=== PATIENT | male | born 1945 | race Caucasian/White ===

== ENCOUNTER 2018-02-06 11:12 | Inpatient (IN) ==
[2018-02-06] MEDS ORDERED: COLCHICINE 0.6 MG TABLET PO ONE (12:30)
[2018-02-06] MEDS: INSULIN REGULAR, HUMAN 100 UNITS/ML VIAL SC SCH ×3 (12:34→20:20)
[2018-02-06 12:57] LABS: Hematocrit 34.4 % (42.0-52.0); Hemoglobin 10.9 gm/dL (13.5-18.0); Mean Cell Volume 83.5 fl (78-100); Mean Corpuscular Hemoglobin 26.5 pg (27-31); Mean Corpuscular Hgb Conc 31.7 g/dl (32-36); Mean Platelet Volume 10.6 fl (8-11.3); Platelet Count 185 K/mm3 (150-450); Red Blood Count 4.12 M/mm3 (4.7-6.0); Red Cell Distribution Width 13.5 % (11.5-14.0); White Blood Count 23.5 K/mm3 (4.0-10.5)
[2018-02-06 13:13] LABS: Anion Gap 7.8 mmol/L (6.8-13.8); BUN/Creatinine Ratio 29.9 (9.0-21.6); Bilirubin, Total 0.4 mg/dL (0.0-1.1); Ca. Corrected For Albumin 10.4 mg/dL (8.4-10.2); Calcium * 9.1 mg/dL (7.9-10.9); Carbon Dioxide 28.4 mmol/L (24-32.6); Potassium 4.2 mmol/L (3.4-4.6); Total Protein 6.5 gm/dL (6.2-8.2)
[2018-02-06 13:21] LABS: Total Cells Counted 100
[2018-02-06 14:08] LABS: Immature Granulocyte 5 (0-1); Lymphocyte 1 % (20-51); Monocyte 5 % (0-9); Neutrophil 89 % (42-75); Neutrophil # 20.9 K/mm3 (1.3-6.0)
[2018-02-06] MEDS: CEFEPIME HCL 1 GM in DEXTROSE 5 % IN WATER 100 ML IV SCH ×2 (15:06)
[2018-02-06] MEDS ORDERED: MORPHINE SULFATE 2 MG/ML DISP.SYRIN IV PRN (15:28)
--- NOTE | 2018-02-06 16:04 | HP ---
Chief Complaint - Chief Complaint Date of Service: 02/06/18 Time of Service: 11:00 Chief Complaint: Severe right foot pain uncontrolled with oral pain meds, dehdryation, malaise History of Present Illness: Pt. 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 The pain has been excruciating and feels like he's walking on razor blades. He has pain meds at home but it hasn't helped. He was at [facility] for f/u chemo, but they just told him not chemo with his foot like that and sent him home. He is here because he is feeling weak and the pain gets to a 10/ 10 if he puts wt. on it and sometimes 7-8/10 just sitting. he denies F/C, PMH or FH of gout, trauma or injury to his foot. He hasn't been eating or drinking much due to the pain and not being able to get up and get water and food. he has help from a friend, but theyre not there all the time to help. Due to his pain and his looking sick, felt it was best to admit to obs and get some tests done, treating his pain and dehydration. Medical History (Last Reviewed 02/06/18 @ 12:08 by Cori Wolfe RN) Hyperlipidemia (Chronic) Mild intermittent asthma in adult without complication (Chronic) Onset Date: ~ 10/25/17 Insomnia (Chronic) Onset Date: ~03/27/13 Hypertension (Chronic) Onset Date: ~03/27/13 Diabetes mellitus (Chronic) Chronic depression (Chronic) Onset Date: ~03/27/13 Abdominal pain (Chronic) Onset Date: ~03/27/13 Liver cancer Onset Date: Unknown Surgical History: Surgical History (Last Reviewed 02/06/18 @ 12:08 by Cori Wolfe RN) H/O umbilical hernia repair Onset Date: ~07/20/11 History of testicular surgery Onset Date: ~1978 Hx of local excision of skin lesion Onset Date: ~03/07/07 S/P excision of lipoma Onset Date: ~08/01/12 Family History: Family History (Last Reviewed 02/06/18 @ 12:09 by Cori Wolfe RN) Father Myocardial infarction Skin cancer Heart disease Hypertension Mother CHF (congestive heart failure) Hypertension Heart disease Sister Hypertension Social History: Patient Lives/Resources Home Utilized Preferred Language Cameroonian Do you have any temple or Yes: prov cultural preference? Smoking Status Never smoker Have you smoked in the past 12 No months Review Of Systems (GEN) - Review of Systems Generalized/Overall Review: Present: Weakness, Malaise, Fatigue, Weight loss. Absent: Chills, Fever EENTM: Present: No Symptoms Reported Respiratory: Present: No Symptoms Reported Cardiac: Present: No Symptoms Reported Abdominal: Present: No Symptoms Reported. Absent: Nausea, Vomiting, Abdominal Pain, Constipation, Diarrhea Genitourinary: Present: No Symptoms Reported Musculoskeletal: Present: Joint Pain Neurological: Present: Weakness Skin: Present: Rash, Change in Color Endocrine: Present: No Symptoms Reported Allergies/Adverse Reactions: Allergies Allergy/AdvReac Type Severity Reaction Status Date / Time No Known Drug Allergies Allergy Verified 02/06/18 12:09 Home Medications: HOME MEDICATIONS amLODIPine BESYLATE [Norvasc (Amlodipine)] 5 mg PO DAILY 08/19/12 [Last Taken Unknown] ascorbic acid (vitamin C) 500 mg tablet 500 mg PO DAILY 01/24/18 [Last Taken Unknown] benazepril 40 mg tablet 20 mg PO DAILY tab 01/24/18 [Last Taken Unknown] glyburide 5 mg tablet 10 mg PO BID tab 01/24/18 [Last Taken Unknown] isosorbide mononitrate ER 30 mg tablet,extended release 24 hr 30 mg PO DAILY 09/08 [Last Taken Unknown] lactobacillus rhamnosus R0011 20 billion cell capsule See Label Instructions PO DAILY 01/24/18 [Last Taken Unknown] melatonin 5 mg tablet 5 mg PO HS PRN 01/24/18 [Last Taken Unknown] metoprolol tartrate 50 mg tablet 25 mg PO BID tab 01/24/18 [Last Taken Unknown] mirtazapine 30 mg tablet 30 mg PO HS 30 Days #30 tab 01/24/18 [Last Taken Unknown] montelukast 10 mg tablet 10 mg PO QPM 01/24/18 [Last Taken Unknown] pioglitazone 30 mg tablet 30 mg PO DAILY 90 Days #90 tab 01/24/18 [Last Taken Unknown] ranitidine 75 mg tablet 75 mg PO DAILY PRN tab 01/24/18 [Last Taken Unknown] sitagliptin 100 mg tablet 100 mg PO DAILY 90 Days #90 tab 01/24/18 [Last Taken Unknown] zolpidem 10 mg tablet 10 mg PO HS tab 01/24/18 [Last Taken Unknown] Exam - Exam Vital Signs: Vital Signs - Last Taken Temp 36.8 C 02/06/18 15:07 Pulse 115 H 02/06/18 15:07 Resp 20 02/06/18 15:07 BP 126/70 02/06/18 15:07 Pulse Ox 95 02/06/18 15:07 Constitutional: Present: Alert, Oriented x3, Cooperative, Moderate distress, Thin and frail ENT Exam: Present: nasal drainage Eye Exam: bilateral eye: normal inspection, PERRL, EOMI Neck: Present: supple Respiratory: Present: lungs clear, normal breath sounds, no respiratory distress , no accessory muscle use Cardiovascular/Chest: Present: regular rate, rhythm, no murmur Abdomen: Present: Normal bowel sounds, soft, nontender, nondistended Extremity: Present: pedal edema - and erythema of right foot. no calor, but definite dolor to palpation Neurologic: Present: hat mender II-XII nml as tested, other - was in WC Appearance: Present: appropriate appearance, appropriate insight, neat, no memory impairment Eye contact: Present: cooperative, good eye contact, normal speech Thoughts: Present: normal thought pattern, no apparent hallucination Diagnostic Studies: Abnormal Lab Results 02/06/18 02/06/18 Range/Units 12:52 12:52 WBC 23.5 H (4.0-10.5) K/mm3 RBC 4.12 L (4.7-6.0) M/mm3 Hgb 10.9 L (13.5-18.0) gm/dL Hct 34.4 L (42.0-52.0) % MCH 26.5 L (27-31) pg MCHC 31.7 L (32-36) g/dl Neutrophils % (Manual) 89 H (42-75) % Lymphocytes % (Manual) 1 L (20-51) % Immature Granulocytes 5 H (0-1) Neutrophils # (Manual) 20.9 H (1.3-6.0) K/mm3 Lymphocytes # (Manual) 0.2 L (1.5-3.5) k/mm3 Monocytes # (Manual) 1.2 H (0.0-1.0) k/mm3 Sodium 125 L (132-142) mmol/L Plasma Sodium 128 L (130-142) mmol/L Chloride 93 L (97-106) mmol/L BUN 47 H D (6-23) mg/dL Creatinine 1.57 H (0.4-1.4) mg/dL Est GFR (Non-Af Amer) 47 L (60-130) mL/min BUN/Creatinine Ratio 29.9 H (9.0-21.6) Random Glucose 284 H (70-110) mg/dL Calcium Adj for Albumin 10.4 H (8.4-10.2) mg/dL AST 71 H (0-48) U/L Albumin 2.0 L (3.4-5.0) gm/dl Laboratory Results WBC 23.5 K/mm3 (4.0-10.5) H 02/06/18 12:52 RBC 4.12 M/mm3 (4.7-6.0) L 02/06/18 12:52 Hgb 10.9 gm/dL (13.5-18.0) L 02/06/18 12:52 Hct 34.4 % (42.0-52.0) L 02/06/18 12:52 MCV 83.5 fl (78-100) 02/06/18 12:52 MCH 26.5 pg (27-31) L 02/06/18 12:52 MCHC 31.7 g/dl (32-36) L 02/06/18 12:52 RDW 13.5 % (11.5-14.0) 02/06/18 12:52 Plt Count 185 K/mm3 (150-450) 02/06/18 12:52 MPV 10.6 fl (8-11.3) 02/06/18 12:52 Neutrophils % (Manual) 89 % (42-75) H 02/06/18 12:52 Lymphocytes % (Manual) 1 % (20-51) L 02/06/18 12:52 Monocytes % (Manual) 5 % (0-9) 02/06/18 12:52 Immature Granulocytes 5 (0-1) H 02/06/18 12:52 Neutrophils # (Manual) 20.9 K/mm3 (1.3-6.0) H 02/06/18 12:52 Lymphocytes # (Manual) 0.2 k/mm3 (1.5-3.5) L 02/06/18 12:52 Monocytes # (Manual) 1.2 k/mm3 (0.0-1.0) H 02/06/18 12:52 Sodium 125 mmol/L (132-142) L 02/06/18 12:52 Plasma Sodium 128 mmol/L (130-142) L 02/06/18 12:52 Potassium 4.2 mmol/L (3.4-4.6) 02/06/18 12:52 Chloride 93 mmol/L (97-106) L 02/06/18 12:52 Carbon Dioxide 28.4 mmol/L (24-32.6) 02/06/18 12:52 Anion Gap 7.8 mmol/L (6.8-13.8) 02/06/18 12:52 BUN 47 mg/dL (6-23) H D 02/06/18 12:52 Creatinine 1.57 mg/dL (0.4-1.4) H 02/06/18 12:52 Est GFR (Non-Af Amer) 47 mL/min (60-130) L 02/06/18 12:52 BUN/Creatinine Ratio 29.9 (9.0-21.6) H 02/06/18 12:52 Random Glucose 284 mg/dL (70-110) H 02/06/18 12:52 Uric Acid 6.0 mg/dL (2.6-7.2) 02/06/18 12:52 Calcium 9.1 mg/dL (7.9-10.9) 02/06/18 12:52 Calcium Adj for Albumin 10.4 mg/dL (8.4-10.2) H 02/06/18 12:52 Total Bilirubin 0.4 mg/dL (0.0-1.1) 02/06/18 12:52 AST 71 U/L (0-48) H 02/06/18 12:52 ALT 41 U/L (19-67) 02/06/18 12:52 Alkaline Phosphatase 131 U/L (50-170) 02/06/18 12:52 Total Protein 6.5 gm/dL (6.2-8.2) 02/06/18 12:52 Albumin 2.0 gm/dl (3.4-5.0) L 02/06/18 12:52 Assessment/Plan - Assessment/Plan (1) Bile duct cancer Assessment: sx onset after 1st chemo - gout prescipitation vs. infection vs. ? Problem: Acute (2) Hyponatremia Assessment: 125 on labs, most likely due to poor nutrition and PO intake most likely. will do IVF of NS, recheck in am. Problem: Acute (3) Dehydration Assessment: Will do IVF. Problem: Acute (4) Anorexia Assessment: will push PO intake, supplements with ensure, consider D51/2NS Problem: Acute (5) Leukocytosis Assessment: concern for possible foot infection - will start cefepime and follow CBC Problem: Acute (6) Foot pain, right Assessment: gout vs infection vs ? will control pain with IV pain meds, check uric acid, do colcrys Problem: Acute (7) Diabetes mellitus Assessment: will hold meds and do SSI while in hospital. do consistent carb diet. Problem: Chronic Qualifiers: Diabetes mellitus type: type 2 Diabetes mellitus long-term insulin use: without watermelon inspector use Diabetes mellitus complication status: without complication Qualified Code(s): E11.9 - Type 2 diabetes mellitus without complications (8) Discharge planning issues Problem: Acute
[2018-02-06 16:10] LABS: Urine Bilirubin Negative (NEGATIVE); Urine Blood 250 /ul (NEGATIVE); Urine Ketone Negative (NEGATIVE); Urine Nitrite Negative (NEGATIVE); Urine Protein 15 mg/dL (NEGATIVE); Urine Specific Gravity 1.025 SP.GR. (1.005-1.030); Urine Urobilinogen Normal (NORMAL); Urine pH 5.5 pH (5.0-7.0)
[2018-02-06 16:50] LABS: Urine Appearance Clear (CLEAR); Urine Bacteria TRACE; Urine Color Yellow; Urine Triple Phosphate Crystal Few - 1+ /hpf; Urine WBC 0-5 /hpf (0-5)
[2018-02-06 16:51] LABS: Urine Mucus TRACE
[2018-02-06] MEDS: MONTELUKAST SODIUM 10 MG TABLET PO SCH (17:17)
[2018-02-06] MEDS: MORPHINE SULFATE 2 MG/ML DISP.SYRIN IV PRN ×3 (17:19→20:02)
[2018-02-06] MEDS: FAMOTIDINE 20 MG TABLET PO PRN (17:52)
[2018-02-06] MEDS: MIRTAZAPINE 15 MG TABLET PO SCH (20:17)
[2018-02-06] MEDS: ZOLPIDEM TARTRATE 10 MG TABLET PO SCH (20:17)
[2018-02-06] MEDS: METOPROLOL TARTRATE 25 MG TABLET PO SCH (20:18)
[2018-02-06] MEDS ORDERED: NALOXONE HCL 1 MG/1 ML SYRG IV PRN (21:54)
[2018-02-06] MEDS ORDERED: diphenhydrAMINE HCL 50 MG/ML VIAL IV PRN (21:54)
[2018-02-06] MEDS: NORMAL SALINE 1,000 ML IV PRN (21:57)
[2018-02-07] MEDS: FAMOTIDINE 20 MG TABLET PO PRN (03:23)
[2018-02-07] MEDS: CEFEPIME HCL 1 GM in DEXTROSE 5 % IN WATER 100 ML IV SCH ×4 (03:26→16:12)
[2018-02-07] MEDS: MORPHINE SULFATE 2 MG/ML DISP.SYRIN IV PRN (03:41)
[2018-02-07 05:35] LABS: Albumin * 1.7 gm/dl (3.4-5.0); Anion Gap 12.3 mmol/L (6.8-13.8); BUN/Creatinine Ratio 31.5 (9.0-21.6); Bilirubin, Total 0.4 mg/dL (0.0-1.1); Calcium * 8.5 mg/dL (7.9-10.9); Carbon Dioxide 28.8 mmol/L (24-32.6); Potassium 4.1 mmol/L (3.4-4.6)
[2018-02-07 05:39] LABS: Hematocrit 31.9 % (42.0-52.0); Hemoglobin 10.1 gm/dL (13.5-18.0); Mean Cell Volume 83.9 fl (78-100); Mean Corpuscular Hemoglobin 26.6 pg (27-31); Mean Corpuscular Hgb Conc 31.7 g/dl (32-36); Platelet Count 233 K/mm3 (150-450); Red Cell Distribution Width 13.7 % (11.5-14.0)
[2018-02-07 05:44] LABS: Total Cells Counted 100
[2018-02-07 06:07] LABS: Band 1 % (0-2.0); Immature Granulocyte 1 (0-1); Lymphocyte 3 % (20-51); Monocyte 7 % (0-9); Neutrophil 88 % (42-75); Neutrophil # 20.2 K/mm3 (1.3-6.0); Platelet Estimate Normal (NORMAL)
[2018-02-07 06:09] LABS: Basophilic Stippling Trace; Hypochromia Trace; Polychromasia Trace
[2018-02-07] MEDS ORDERED: KETOROLAC TROMETHAMINE 15 MG/ML VIAL IV ONE (06:40)
--- NOTE | 2018-02-07 07:04 | PN ---
Subjective - Date and Time Seen Date: 02/07/18 Time: 06:50 Subjective Narrative: Pain in right foot still intractible requiring frequent morphine dosing. CONTAINER SHOP WELDER that was ordered last pm was not available. Pt. also complaint of abdominal discomfort and distension with "egg taste" in mouth. Last BM was Saturday. No other complaints this am. Appetite is still poor. Objective - Review of Systems Generalized/Overall Review: Reports: Weakness, Weight loss. Denies: Chills, Fever EENTM: Reports: No Symptoms Reported Respiratory: Reports: No Symptoms Reported Cardiac: Reports: No Symptoms Reported Abdominal: Reports: Nausea, Abdominal Pain, Constipation. Denies: Vomiting, Diarrhea Genitourinary Symptoms: Reports: No Symptoms Reported Musculoskeletal Complaints: Reports: Joint Pain - foot pain - right foot. Neurological: Reports: No Symptoms Reported Skin: Reports: No Symptoms Reported Endocrine: Reports: No Symptoms Reported - Vitals Vitals: Last Vital Signs Temp 36.8 C 02/07/18 06:48 Pulse 109 H 02/07/18 06:48 Resp 18 02/07/18 06:48 BP 154/81 H 02/07/18 06:48 Pulse Ox 96 02/07/18 06:48 - Abnormal Lab Findings Abnormal Lab Findings: Abnormal Lab Results 02/06/18 02/06/18 02/06/18 Range/Units 12:52 12:52 15:39 WBC 23.5 H (4.0-10.5) K/mm3 RBC 4.12 L (4.7-6.0) M/mm3 Hgb 10.9 L (13.5-18.0) gm/dL Hct 34.4 L (42.0-52.0) % MCH 26.5 L (27-31) pg MCHC 31.7 L (32-36) g/dl Neutrophils % (Manual) 89 H (42-75) % Lymphocytes % (Manual) 1 L (20-51) % Immature Granulocytes 5 H (0-1) Neutrophils # (Manual) 20.9 H (1.3-6.0) K/mm3 Lymphocytes # (Manual) 0.2 L (1.5-3.5) k/mm3 Monocytes # (Manual) 1.2 H (0.0-1.0) k/mm3 ESR (0-10) mm/hr Sodium 125 L (132-142) mmol/L Plasma Sodium 128 L (130-142) mmol/L Chloride 93 L (97-106) mmol/L BUN 47 H D (6-23) mg/dL Creatinine 1.57 H (0.4-1.4) mg/dL Est GFR (Non-Af Amer) 47 L (60-130) mL/min BUN/Creatinine Ratio 29.9 H (9.0-21.6) Random Glucose 284 H (70-110) mg/dL Calcium Adj for Albumin 10.4 H (8.4-10.2) mg/dL AST 71 H (0-48) U/L Total Protein (6.2-8.2) gm/dL Albumin 2.0 L (3.4-5.0) gm/dl Urine Protein 15 H (NEGATIVE) mg/dL Urine Glucose (UA) 500 H (NEGATIVE) mg/dL Urine Blood 250 H (NEGATIVE) /ul Prot Sulfosalicylic Acd 2+ H (0) mg/dL Urine RBC 5-10 H (0-5) /hpf Triple Phos Crystals Few - 1+ H (NONE) /hpf 02/06/18 02/07/18 02/07/18 Range/Units 16:50 05:15 05:15 WBC 23.0 H (4.0-10.5) K/mm3 RBC 3.80 L (4.7-6.0) M/mm3 Hgb 10.1 L (13.5-18.0) gm/dL Hct 31.9 L (42.0-52.0) % MCH 26.6 L (27-31) pg MCHC 31.7 L (32-36) g/dl Neutrophils % (Manual) 88 H (42-75) % Lymphocytes % (Manual) 3 L (20-51) % Immature Granulocytes (0-1) Neutrophils # (Manual) 20.2 H (1.3-6.0) K/mm3 Lymphocytes # (Manual) 0.7 L (1.5-3.5) k/mm3 Monocytes # (Manual) 1.6 H (0.0-1.0) k/mm3 ESR 58 H (0-10) mm/hr Sodium (132-142) mmol/L Plasma Sodium (130-142) mmol/L Chloride (97-106) mmol/L BUN 40 H (6-23) mg/dL Creatinine (0.4-1.4) mg/dL Est GFR (Non-Af Amer) 59 L D (60-130) mL/min BUN/Creatinine Ratio 31.5 H (9.0-21.6) Random Glucose 141 H D (70-110) mg/dL Calcium Adj for Albumin (8.4-10.2) mg/dL AST 50 H (0-48) U/L Total Protein 6.0 L (6.2-8.2) gm/dL Albumin 1.7 L (3.4-5.0) gm/dl Urine Protein (NEGATIVE) mg/dL Urine Glucose (UA) (NEGATIVE) mg/dL Urine Blood (NEGATIVE) /ul Prot Sulfosalicylic Acd (0) mg/dL Urine RBC (0-5) /hpf Triple Phos Crystals (NONE) /hpf - Exam Constitutional: Present: Alert, Oriented x3, Cooperative, Mild distress, Moderate distress, Thin and frail ENT Exam: Present: hearing grossly normal Neck: Present: supple Respiratory: Present: lungs clear, normal breath sounds, no respiratory distress Cardiovascular/Chest: Present: regular rate, rhythm, no murmur Abdomen: Present: nontender, distended, hypoactive. Absent: guarding, rigidity Extremity: Present: no calf tenderness, other - right foot with < erythema, still very tender to squeeze. decreased swelling. DP is palpable. Skin Exam: Present: cool/dry Neurologic: Present: automotive painter helper II-XII nml as tested, oriented x 3, depressed affect Appearance: Present: appropriate appearance, appropriate insight, neat, no memory impairment Eye contact: Present: cooperative, good eye contact, normal speech Thoughts: Present: normal thought pattern, no apparent hallucination Assessment/Plan - Problems/Diagnosis (1) Bile duct cancer Problem: Acute (2) Hyponatremia Problem: Resolved (3) Dehydration Problem: Resolved (4) Anorexia Problem: Acute (5) Leukocytosis Problem: Acute Qualifiers: Leukocytosis type: leukemoid reaction Qualified Code(s): D72.823 - Leukemoid reaction Narrative: still persisting this am. could be not enough time for abx to work. ESR and left shift supports probable infectious cause of this so will continue cefipime. UA was negative for infection, could be prostate or colon infection or even his foot since this is improved this am from an appearance standpoint. (6) Foot pain, right Problem: Acute Narrative: Uric acid was 6, could be pseudogout reaction. Foot looks better this am, so I think the colcrys may be helping which supports this suspicion. Will add toradol x 1 this am. (7) Diabetes mellitus Problem: Chronic Qualifiers: Diabetes mellitus type: type 2 Diabetes mellitus termite control servicer insulin use: without termite control servicer use Diabetes mellitus complication status: without complication Qualified Code(s): E11.9 - Type 2 diabetes mellitus without complications Narrative: sugars better this am. continue consistent carb diet and SSI. hold other meds for now. (8) Acute renal failure Problem: Resolved Qualifiers: Acute renal failure type: unspecified Qualified Code(s): N17.9 - Acute kidney failure, unspecified (9) Malnourished Problem: Acute Qualifiers: Malnutrition type: protein-calorie malnutrition Protein-calorie malnutrition severity: severe Qualified Code(s): E43 - Unspecified severe protein-calorie malnutrition Narrative: due to poor PO intake. consider TPN, but will push supplements of ensure TID to 6x/day (clear and regular mix) consider dietary consult. (10) Constipation Problem: Acute Qualifiers: Constipation type: drug induced constipation Qualified Code(s): K59.03 - Drug induced constipation Narrative: most likely from his pain meds. will do suppository, once he has BM will give magcitrate and then start on miralax daily. (11) Intractable pain Problem: Acute Narrative: add CONTAINER SHOP WELDER today. will have to transition off this to oral meds, but will start that tomorrow. (12) Discharge planning issues Problem: Acute Narrative: can look at discharge once WBC is normalizing on abx - cx pending, pain is controlled and he's on oral meds, nutrition is improved, has had a bm and he is ambulating independently again. anticipate this will take at least 2 more midnights to accomplish.
[2018-02-07] MEDS: BISACODYL 10 MG SUPP.RECT RC SCH ×4 (07:18→18:54)
[2018-02-07] MEDS: INSULIN REGULAR, HUMAN 100 UNITS/ML VIAL SC SCH ×4 (07:24→20:17)
[2018-02-07] MEDS ORDERED: MORPHINE SULFATE 50 MG CARTRIDGE IV PRN (07:36)
[2018-02-07] MEDS: ONDANSETRON HCL/PF 2 MG/ML VIAL IV PRN (07:55)
[2018-02-07] MEDS: amLODIPine BESYLATE 5 MG TABLET PO SCH (08:11)
[2018-02-07] MEDS: POLYETHYLENE GLYCOL 3350 119 GM BTL PO SCH (08:11)
[2018-02-07] MEDS: METOPROLOL TARTRATE 25 MG TABLET PO SCH ×2 (08:11→20:12)
[2018-02-07] MEDS: MORPHINE SULFATE 50 MG CARTRIDGE IV PRN ×2 (08:42→12:26)
[2018-02-07] MEDS ORDERED: ENALAPRIL MALEATE 20 MG TABLET PO SCH (09:00)
[2018-02-07] MEDS: NORMAL SALINE 1,000 ML IV PRN ×2 (14:37→23:32)
[2018-02-07] MEDS ORDERED: MAGNESIUM CITRATE 300 ML BTL PO ONE (16:20)
[2018-02-07] MEDS: MONTELUKAST SODIUM 10 MG TABLET PO SCH (18:00)
[2018-02-07] MEDS: ZOLPIDEM TARTRATE 10 MG TABLET PO SCH (20:11)
[2018-02-07] MEDS: MIRTAZAPINE 15 MG TABLET PO SCH (20:12)
[2018-02-08] MEDS: BISACODYL 10 MG SUPP.RECT RC SCH ×6 (00:53→19:43)
[2018-02-08] MEDS: CEFEPIME HCL 1 GM in DEXTROSE 5 % IN WATER 100 ML IV SCH ×4 (02:43→16:01)
[2018-02-08 05:44] LABS: Hematocrit 32.9 % (42.0-52.0); Mean Corpuscular Hemoglobin 26.5 pg (27-31); Mean Corpuscular Hgb Conc 30.4 g/dl (32-36); Mean Platelet Volume 11.4 fl (8-11.3); Neutrophil # 15.1 K/mm3 (1.3-6.0); Neutrophil % 86.2 % (42-75.0); Platelet Count 246 K/mm3 (150-450); Red Blood Count 3.78 M/mm3 (4.7-6.0); White Blood Count 17.5 K/mm3 (4.0-10.5)
[2018-02-08] MEDS: INSULIN REGULAR, HUMAN 100 UNITS/ML VIAL SC SCH ×4 (07:05→20:46)
--- NOTE | 2018-02-08 07:54 | PN ---
Subjective - Date and Time Seen Date: 02/08/18 Time: 07:36 Subjective Narrative: Pain is better in foot, but still hurts a lot when ambulating. Appetite is better after having 8 BM's yesterday. Objective - Review of Systems Generalized/Overall Review: Reports: Weakness. Denies: Chills, Fever, Malaise EENTM: Reports: No Symptoms Reported Respiratory: Denies: Cough, Shortness of Breath Cardiac: Reports: No Symptoms Reported Abdominal: Reports: Nausea. Denies: Abdominal Pain, Constipation, Diarrhea Genitourinary Symptoms: Reports: No Symptoms Reported Musculoskeletal Complaints: Reports: Joint Pain - foot still painful but is better. Neurological: Reports: No Symptoms Reported Skin: Reports: No Symptoms Reported - Vitals Vitals: Last Vital Signs Temp 37 C 02/08/18 05:00 Pulse 98 02/08/18 05:00 Resp 20 02/08/18 05:00 BP 118/71 02/08/18 05:00 Pulse Ox 96 02/08/18 05:00 - Abnormal Lab Findings Abnormal Lab Findings: Abnormal Lab Results 02/08/18 Range/Units 05:35 WBC 17.5 H D (4.0-10.5) K/mm3 RBC 3.78 L (4.7-6.0) M/mm3 Hgb 10.0 L (13.5-18.0) gm/dL Hct 32.9 L (42.0-52.0) % MCH 26.5 L (27-31) pg MCHC 30.4 L (32-36) g/dl MPV 11.4 H (8-11.3) fl Immature Gran % (Auto) 2.80 H (0.001-0.429) % Immature Gran # (Auto) 0.49 H (0.000-0.0310) K/mm3 Neutrophils % 86.2 H (42-75.0) % Lymphocytes % 4.2 L (20-51) % Neutrophils # 15.1 H (1.3-6.0) K/mm3 Lymphocytes # 0.74 L (1.5-3.5) k/mm3 Monocytes # 1.1 H (0.0-1.0) k/mm3 - Exam Constitutional: Present: Alert, Oriented x3, Cooperative, Mild distress ENT Exam: Present: hearing grossly normal Neck: Present: supple Respiratory: Present: lungs clear, normal breath sounds, no respiratory distress , no accessory muscle use Cardiovascular/Chest: Present: regular rate, rhythm Abdomen: Present: Normal bowel sounds, soft, nontender, distended /Rectal: Present: Exam deferred Extremity: Present: normal range of motion, no calf tenderness, other - toes violaceous, but improved in color. they are cool but not TTP. foot is more violaceous and less red, ammonia distiller to squeeze. Skin Exam: Present: normal color Neurologic: Present: normal mood/affect, oriented x 3 Appearance: Present: appropriate appearance, appropriate insight, neat, no memory impairment Eye contact: Present: cooperative, good eye contact, normal speech Thoughts: Present: normal thought pattern, no apparent hallucination Assessment/Plan - Problems/Diagnosis (1) Bile duct cancer Problem: Acute Narrative: stable (2) Hyponatremia Problem: Resolved (3) Dehydration Problem: Resolved Narrative: will still continue IVF due to poor PO intake. (4) Anorexia Problem: Acute (5) Leukocytosis Problem: Acute Qualifiers: Leukocytosis type: leukemoid reaction Qualified Code(s): D72.823 - Leukemoid reaction Narrative: improved, suspect infection though no specific source. could be infection of liver from Bx done a few weeks ago given elevated AST, but even this isn't greatly elevated. Foot could be infected, but doesn't fit all the signs and sx of infection. Doubt endocarditis, but is possible, but no murmur heard on exam. Will continue cefepime for now given broad coverage. Consider change to augmentin at time of discharge. (6) Foot pain, right Problem: Acute Narrative: still believe gout or pseudogout attack. could possibly be infection. Continue SOAPSTONER for now. (7) Diabetes mellitus Problem: Chronic Qualifiers: Diabetes mellitus type: type 2 Diabetes mellitus terminal operator insulin use: without penitentiary use Diabetes mellitus complication status: without complication Qualified Code(s): E11.9 - Type 2 diabetes mellitus without complications Narrative: sugars running a little high, in the 200's, now that he's eating a little better , will increase to moderate SSI. (8) Acute renal failure Problem: Resolved Qualifiers: Acute renal failure type: unspecified Qualified Code(s): N17.9 - Acute kidney failure, unspecified (9) Malnourished Problem: Acute Qualifiers: Malnutrition type: protein-calorie malnutrition Protein-calorie malnutrition severity: severe Qualified Code(s): E43 - Unspecified severe protein-calorie malnutrition Narrative: continue to push ensure as it has more calories and protein I believe than glucerna. Can deal with the effect on sugars with SSI. Push PO intake. (10) Constipation Problem: Acute Qualifiers: Constipation type: drug induced constipation Qualified Code(s): K59.03 - Drug induced constipation Narrative: improved after mag citrate and suppository. Will do miralax daily, possibly repeat mag citrate tomorrow if felt needed. Do believe this may have been causing his anorexia or at least contributing to it. It's possible it could also have been causing some of his leukocytosis. (11) Intractable pain Problem: Acute Narrative: better, but still on SOAPSTONER. Will start to wean him off this hopefully tomorrow, but did use almost 40mg of morphine yesterday so don't want to d/c just yet. (12) Weakness Problem: Acute Narrative: will order PT for strengthening, though there will have to be some considerations for his foot - maybe exercises in bed. (13) Discharge planning issues Problem: Acute Narrative: hopefully will be able to d/c to [facility] on Saturday. Should be able to do so if he continues to improve like he is.
[2018-02-08] MEDS: NORMAL SALINE 1,000 ML IV PRN ×2 (08:11→16:52)
[2018-02-08] MEDS: POLYETHYLENE GLYCOL 3350 119 GM BTL PO SCH (10:01)
[2018-02-08] MEDS: METOPROLOL TARTRATE 25 MG TABLET PO SCH ×2 (10:02→20:40)
[2018-02-08] MEDS: amLODIPine BESYLATE 5 MG TABLET PO SCH (10:02)
[2018-02-08] MEDS: ENALAPRIL MALEATE 5 MG TABLET PO SCH (10:02)
[2018-02-08] MEDS: MONTELUKAST SODIUM 10 MG TABLET PO SCH (16:58)
[2018-02-08] MEDS: FAMOTIDINE 20 MG TABLET PO PRN (18:37)
[2018-02-08] MEDS: ZOLPIDEM TARTRATE 10 MG TABLET PO SCH (20:34)
[2018-02-08] MEDS: MIRTAZAPINE 15 MG TABLET PO SCH (20:37)
[2018-02-09] MEDS: NORMAL SALINE 1,000 ML IV PRN ×2 (01:16→10:36)
[2018-02-09] MEDS: BISACODYL 10 MG SUPP.RECT RC SCH ×6 (02:03→20:17)
[2018-02-09] MEDS: CEFEPIME HCL 1 GM in DEXTROSE 5 % IN WATER 100 ML IV SCH ×2 (03:48)
[2018-02-09] MEDS: INSULIN REGULAR, HUMAN 100 UNITS/ML VIAL SC SCH ×4 (07:25→20:22)
[2018-02-09] MEDS: amLODIPine BESYLATE 5 MG TABLET PO SCH (08:24)
[2018-02-09] MEDS: ENALAPRIL MALEATE 5 MG TABLET PO SCH (08:25)
[2018-02-09] MEDS: POLYETHYLENE GLYCOL 3350 119 GM BTL PO SCH (08:26)
[2018-02-09] MEDS: METOPROLOL TARTRATE 25 MG TABLET PO SCH ×2 (08:33→20:11)
[2018-02-09] MEDS: FAMOTIDINE 20 MG TABLET PO PRN (10:40)
[2018-02-09 13:44] LABS: Hematocrit 31.5 % (42.0-52.0); Hemoglobin 9.8 gm/dL (13.5-18.0); Mean Cell Volume 86.3 fl (78-100); Mean Corpuscular Hemoglobin 26.8 pg (27-31); Mean Corpuscular Hgb Conc 31.1 g/dl (32-36); Mean Platelet Volume 10.5 fl (8-11.3); Neutrophil % 88.5 % (42-75.0); Platelet Count 428 K/mm3 (150-450); Red Blood Count 3.65 M/mm3 (4.7-6.0); Red Cell Distribution Width 14.1 % (11.5-14.0); White Blood Count 20.4 K/mm3 (4.0-10.5)
[2018-02-09 13:50] LABS: Albumin * 1.6 gm/dl (3.4-5.0); Anion Gap 12.3 mmol/L (6.8-13.8); BUN/Creatinine Ratio 23.5 (9.0-21.6); Bilirubin, Total 0.2 mg/dL (0.0-1.1); Ca. Corrected For Albumin 8.7 mg/dL (8.4-10.2); Calcium * 7.1 mg/dL (7.9-10.9); Carbon Dioxide 24.5 mmol/L (24-32.6); Potassium 3.8 mmol/L (3.4-4.6); Total Protein 5.8 gm/dL (6.2-8.2)
[2018-02-09] MEDS ORDERED: FUROSEMIDE 10 MG/ML VIAL IV ONE (14:22)
[2018-02-09] MEDS: CLINDAMYCIN HCL 150 MG CAPSULE PO SCH (14:33)
[2018-02-09] MEDS: CALCIUM CARBONATE/VITAMIN D3 1 TAB TABLET PO SCH ×2 (14:33→20:27)
--- NOTE | 2018-02-09 14:37 | PN ---
Subjective - Date and Time Seen Date: 02/09/18 Time: 14:23 Subjective Narrative: Pt. complaint of abdominal distension and SOB. he denies a great deal of abdominal pain, F/c. foot pain is better. Objective - Review of Systems Generalized/Overall Review: Reports: Weakness. Denies: Chills, Fever EENTM: Reports: No Symptoms Reported Respiratory: Reports: Shortness of Breath. Denies: Cough, Wheezing Cardiac: Reports: Edema. Denies: Chest Pain, Palpitations Abdominal: Reports: Nausea, Abdominal Pain, Diarrhea. Denies: Vomiting, Constipation Genitourinary Symptoms: Denies: No Symptoms Reported Musculoskeletal Complaints: Denies: No Symptoms Reported Neurological: Denies: No Symptoms Reported Skin: Denies: No Symptoms Reported Endocrine: Denies: No Symptoms Reported - Vitals Vitals: Last Vital Signs Temp 36.2 C 02/09/18 10:00 Pulse 112 H 02/09/18 13:00 Resp 16 02/09/18 13:00 BP 121/70 02/09/18 13:00 Pulse Ox 95 02/09/18 13:00 - Abnormal Lab Findings Abnormal Lab Findings: Abnormal Lab Results 02/09/18 02/09/18 Range/Units 13:29 13:29 WBC 20.4 H (4.0-10.5) K/mm3 RBC 3.65 L (4.7-6.0) M/mm3 Hgb 9.8 L (13.5-18.0) gm/dL Hct 31.5 L (42.0-52.0) % MCH 26.8 L (27-31) pg MCHC 31.1 L (32-36) g/dl RDW 14.1 H (11.5-14.0) % Immature Gran % (Auto) 2.20 H (0.001-0.429) % Immature Gran # (Auto) 0.44 H (0.000-0.0310) K/mm3 Neutrophils % 88.5 H (42-75.0) % Lymphocytes % 2.9 L (20-51) % Neutrophils # 18.0 H (1.3-6.0) K/mm3 Lymphocytes # 0.58 L (1.5-3.5) k/mm3 Monocytes # 1.2 H (0.0-1.0) k/mm3 BUN 27 H (6-23) mg/dL BUN/Creatinine Ratio 23.5 H (9.0-21.6) Random Glucose 297 H D (70-110) mg/dL Calcium 7.1 L (7.9-10.9) mg/dL AST 54 H (0-48) U/L Total Protein 5.8 L (6.2-8.2) gm/dL Albumin 1.6 L (3.4-5.0) gm/dl - Exam Constitutional: Present: Alert, Oriented x3, Cooperative, Mild distress, Moderate distress, Elderly, Thin and frail ENT Exam: Present: hearing grossly normal Neck: Present: supple Respiratory: Present: lungs clear, normal breath sounds, no accessory muscle use , respiratory distress - mild Cardiovascular/Chest: Present: regular rate, rhythm, no murmur, tachycardia Abdomen: Present: Normal bowel sounds, no rebound tenderness, no hepatospenomegaly, firm, other - dullness to percusion when patient on side to [address] abdomen., distended. Absent: tender, guarding Extremity: Present: non-tender, no calf tenderness, other - violaceous discoloration of toes, distal plantar foot, mid foot on dorsum. No rubor or calor, min. dolor to palpation. 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 fluids stopped. (3) Dehydration Problem: Resolved (4) Anorexia Problem: Acute Narrative: worse again, most likely due to abdominal issues. (5) Leukocytosis Problem: Acute Qualifiers: Leukocytosis type: leukemoid reaction Qualified Code(s): D72.823 - Leukemoid reaction Narrative: worse, no pain, but with findings c/w ascites, there would be some concern for SBP. All findings don't fit, especially being that he's been on cefepime, but if fevers, worsening WBC, then would consider US guided paracentesis with cultures and more broader spectrum treatment for this. (6) Foot pain, right Problem: Acute Narrative: sugars still running high. will increase SSI to high dose. 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 puts him at higher risk for ascites. (10) Constipation Problem: Resolved Qualifiers: Constipation type: drug induced constipation Qualified Code(s): K59.03 - Drug induced constipation Narrative: continue miralax daily. (11) Intractable pain Problem: Acute Narrative: improved. 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 (12) Weakness Problem: Acute Narrative: will do PT. (13) Ascites Problem: Acute Narrative: probably due to poor nutrition, hypoalbuminemia. Will d/c IVF. do IV lasix. if sx persist - tachycardia being one possible sign, will order US guided paracentesis with cultures, also looking for it being malignant in nature. (14) Discharge planning issues Problem: Acute Narrative: hope to discharge tomorrow, but with WBC going up and ascites causing issues, it may now be Saturday before we can plan on discharging.
[2018-02-09] MEDS: MONTELUKAST SODIUM 10 MG TABLET PO SCH (17:00)
[2018-02-09] MEDS: oxyCODONE HCL 5 MG TABLET PO PRN (18:42)
[2018-02-09] MEDS: ZOLPIDEM TARTRATE 10 MG TABLET PO SCH (20:11)
[2018-02-09] MEDS: MIRTAZAPINE 15 MG TABLET PO SCH (20:12)
[2018-02-10] MEDS: BISACODYL 10 MG SUPP.RECT RC SCH ×7 (00:31→23:10)
[2018-02-10] MEDS: CLINDAMYCIN HCL 150 MG CAPSULE PO SCH ×2 (01:38→15:15)
[2018-02-10 05:45] LABS: Hematocrit 31.8 % (42.0-52.0); Hemoglobin 9.5 gm/dL (13.5-18.0); Mean Cell Volume 87.1 fl (78-100); Mean Corpuscular Hgb Conc 29.9 g/dl (32-36); Mean Platelet Volume 10.7 fl (8-11.3); Platelet Count 499 K/mm3 (150-450); Red Blood Count 3.65 M/mm3 (4.7-6.0); Red Cell Distribution Width 14.1 % (11.5-14.0); White Blood Count 20.7 K/mm3 (4.0-10.5)
[2018-02-10] MEDS: oxyCODONE HCL 5 MG TABLET PO PRN ×3 (05:56→20:50)
[2018-02-10 05:58] LABS: Albumin * 1.7 gm/dl (3.4-5.0); Anion Gap 9.2 mmol/L (6.8-13.8); BUN/Creatinine Ratio 20.5 (9.0-21.6); Bilirubin, Total 0.3 mg/dL (0.0-1.1); Ca. Corrected For Albumin 9.4 mg/dL (8.4-10.2); Calcium * 7.9 mg/dL (7.9-10.9); Carbon Dioxide 27.4 mmol/L (24-32.6); Magnesium 1.7 mg/dL (1.2-2.8); Phosphorus 1.7 mg/dL (2.2-4.2); Potassium 3.6 mmol/L (3.4-4.6)
--- NOTE | 2018-02-10 06:54 | PN ---
Subjective - Date and Time Seen Date: 02/10/18 Time: 06:52 Subjective Narrative: Feels better after lasix given - can breath better. Has issues with ensure causing gas and "egg taste" in mouth. Foot pain is worse today. No other complaints. Objective - Review of Systems Generalized/Overall Review: Reports: Weakness. Denies: Chills, Fever EENTM: Reports: No Symptoms Reported Respiratory: Reports: Shortness of Breath - improved. Denies: Cough, Orthopnea Cardiac: Reports: Edema. Denies: Chest Pain, Palpitations Abdominal: Reports: Nausea. Denies: Vomiting, Hematemesis, Abdominal Pain, Constipation, Diarrhea Genitourinary Symptoms: Reports: No Symptoms Reported Neurological: Reports: Weakness Skin: Reports: No Symptoms Reported Endocrine: Reports: No Symptoms Reported - Vitals Vitals: Last Vital Signs Temp 37.0 C 02/10/18 05:00 Pulse 98 02/10/18 05:00 Resp 18 02/10/18 05:00 BP 121/59 02/10/18 05:00 Pulse Ox 96 02/10/18 05:00 - Abnormal Lab Findings Abnormal Lab Findings: Abnormal Lab Results 02/09/18 02/09/18 02/10/18 Range/Units 13:29 13:29 05:10 WBC 20.4 H 20.7 H (4.0-10.5) K/mm3 RBC 3.65 L 3.65 L (4.7-6.0) M/mm3 Hgb 9.8 L 9.5 L (13.5-18.0) gm/dL Hct 31.5 L 31.8 L (42.0-52.0) % MCH 26.8 L 26.0 L (27-31) pg MCHC 31.1 L 29.9 L (32-36) g/dl RDW 14.1 H 14.1 H (11.5-14.0) % Plt Count 499 H (150-450) K/mm3 Immature Gran % (Auto) 2.20 H 1.50 H (0.001-0.429) % Immature Gran # (Auto) 0.44 H 0.32 H (0.000-0.0310) K/mm3 Neutrophils % 88.5 H 87.0 H (42-75.0) % Lymphocytes % 2.9 L 4.6 L (20-51) % Neutrophils # 18.0 H 18.0 H (1.3-6.0) K/mm3 Lymphocytes # 0.58 L 0.95 L (1.5-3.5) k/mm3 Monocytes # 1.2 H 1.3 H (0.0-1.0) k/mm3 BUN 27 H (6-23) mg/dL BUN/Creatinine Ratio 23.5 H (9.0-21.6) Random Glucose 297 H D (70-110) mg/dL Calcium 7.1 L (7.9-10.9) mg/dL Phosphorus (2.2-4.2) mg/dL AST 54 H (0-48) U/L Total Protein 5.8 L (6.2-8.2) gm/dL Albumin 1.6 L (3.4-5.0) gm/dl 02/10/18 Range/Units 05:10 WBC (4.0-10.5) K/mm3 RBC (4.7-6.0) M/mm3 Hgb (13.5-18.0) gm/dL Hct (42.0-52.0) % MCH (27-31) pg MCHC (32-36) g/dl RDW (11.5-14.0) % Plt Count (150-450) K/mm3 Immature Gran % (Auto) (0.001-0.429) % Immature Gran # (Auto) (0.000-0.0310) K/mm3 Neutrophils % (42-75.0) % Lymphocytes % (20-51) % Neutrophils # (1.3-6.0) K/mm3 Lymphocytes # (1.5-3.5) k/mm3 Monocytes # (0.0-1.0) k/mm3 BUN (6-23) mg/dL BUN/Creatinine Ratio (9.0-21.6) Random Glucose 133 H D (70-110) mg/dL Calcium (7.9-10.9) mg/dL Phosphorus 1.7 L (2.2-4.2) mg/dL AST (0-48) U/L Total Protein 6.0 L (6.2-8.2) gm/dL Albumin 1.7 L (3.4-5.0) gm/dl - Exam Constitutional: Present: Alert, Oriented x3, Cooperative, Well developed, No distress, Elderly, Thin and frail ENT Exam: Present: hearing grossly normal Neck: Present: supple Respiratory: Present: lungs clear, normal breath sounds, no respiratory distress Cardiovascular/Chest: Present: regular rate, rhythm, no murmur Abdomen: Present: Normal bowel sounds, soft, nontender, other - dullness to percussion michael 1/4 up on sides., distended Extremity: Present: pedal edema, slow capillary refill, other - foot is cool on right, toes purple as well as dorsum of foot. TTP on dorsum of foot in MT region. no rubor or calor. 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 (5) Leukocytosis Problem: Acute Qualifiers: Leukocytosis type: leukemoid reaction Qualified Code(s): D72.823 - Leukemoid reaction Narrative: still unsure the etiology. it is not improved with dlindamycin. no murmur heard or fever so doubt endocarditis, though could be possible given purple toes on right foot. Could still be infection in the foot, though not sure why it would improve then regress on cefepime. Could be SBP, though again no fever or chills and NTTP on his abdomen. Will get paracentesis with studies to r/o SBP. Add levaquin to clindamycin for broader coverage. Consider ECHO. (6) Foot pain, right Problem: Acute Narrative: infection or circulation issue or emboli from endocarditis (doubtful) or possible gout. 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 I did not increase his SSI as thought so will increase to moderate SSI and see how he does. (8) Acute renal failure Problem: Resolved Qualifiers: Acute renal failure type: unspecified Qualified Code(s): N17.9 - Acute kidney failure, unspecified (9) Malnourished Problem: Acute Qualifiers: Malnutrition type: protein-calorie malnutrition Protein-calorie malnutrition severity: severe Qualified Code(s): E43 - Unspecified severe protein-calorie malnutrition Narrative: continue to push nutrition. May need to change to regular diet so he can choose more of what he might like. (10) Constipation Problem: Resolved Qualifiers: Constipation type: drug induced constipation Qualified Code(s): K59.03 - Drug induced constipation Narrative: continue miralax. (11) Intractable pain Problem: Acute Narrative: improved. continue po oxycodone. (12) Weakness Problem: Acute Narrative: get PT started. question is whether [facility] would be better than the [facility] from a rehab standpoint. (13) Ascites Problem: Acute Qualifiers: Ascites type: other type Qualified Code(s): R18.8 - Other ascites Narrative: improved after lasix given. will do this prn. consider aldactone. (14) Discharge planning issues Problem: Acute Narrative: can't discharge until WBC improving. will be tomorrow at the earliest and possibly not until Sat.
[2018-02-10] MEDS: INSULIN REGULAR, HUMAN 100 UNITS/ML VIAL SC SCH ×4 (07:32→21:02)
[2018-02-10 08:55] LABS: INR 1.2 INR (0.90-1.10); Partial Thrombolplastin Time 26.7 Seconds (24-32)
[2018-02-10] MEDS: METOPROLOL TARTRATE 25 MG TABLET PO SCH ×2 (09:27→22:18)
[2018-02-10] MEDS: CALCIUM CARBONATE/VITAMIN D3 1 TAB TABLET PO SCH ×2 (09:27→20:46)
[2018-02-10] MEDS: POLYETHYLENE GLYCOL 3350 119 GM BTL PO SCH (09:27)
[2018-02-10] MEDS: ENALAPRIL MALEATE 5 MG TABLET PO SCH (09:28)
[2018-02-10] MEDS: amLODIPine BESYLATE 5 MG TABLET PO SCH (09:28)
[2018-02-10] MEDS: LEVOFLOXACIN 750 MG TABLET PO SCH (11:21)
[2018-02-10] MEDS ORDERED: NORMAL SALINE 500 ML IV ONE (15:00)
[2018-02-10 15:17] LABS: Peritoneal Fluid Uric Acid 4.6 mg/dL
[2018-02-10 15:55] LABS: Body Fluid WBC 466 /uL (0-1000)
[2018-02-10 16:21] LABS: Body Fluid Appearance CLEAR (CLEAR); Body Fluid Color YELLOW (COLORLESS)
[2018-02-10] MEDS: MONTELUKAST SODIUM 10 MG TABLET PO SCH (16:26)
[2018-02-10] MEDS: MIRTAZAPINE 15 MG TABLET PO SCH (20:45)
[2018-02-10] MEDS: FAMOTIDINE 20 MG TABLET PO PRN (20:45)
[2018-02-10] MEDS: ZOLPIDEM TARTRATE 10 MG TABLET PO SCH (20:50)
[2018-02-10] MEDS: ONDANSETRON HCL/PF 2 MG/ML VIAL IV PRN (22:13)
[2018-02-11] MEDS: CLINDAMYCIN HCL 150 MG CAPSULE PO SCH (02:02)
[2018-02-11] MEDS: BISACODYL 10 MG SUPP.RECT RC SCH ×3 (02:45→11:41)
[2018-02-11 05:43] LABS: Hematocrit 27.8 % (42.0-52.0); Hemoglobin 8.5 gm/dL (13.5-18.0); Mean Cell Volume 85.8 fl (78-100); Mean Corpuscular Hemoglobin 26.2 pg (27-31); Mean Corpuscular Hgb Conc 30.6 g/dl (32-36); Mean Platelet Volume 10.9 fl (8-11.3); Neutrophil # 13.8 K/mm3 (1.3-6.0); Neutrophil % 85.6 % (42-75.0); Platelet Count 467 K/mm3 (150-450); Red Blood Count 3.24 M/mm3 (4.7-6.0); Red Cell Distribution Width 14.2 % (11.5-14.0); White Blood Count 16.1 K/mm3 (4.0-10.5)
--- NOTE | 2018-02-11 06:15 | PATH ---
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 Most recent CT scan here at [facility] 12/20/2017 shows a dominant 12.7 cm right liver mass with evidence of nodules in the liver and omentum. He was unable to continue chemotherapy and is admitted for right foot pain which prevented further treatment with chemotherapy.. Patient underwent paracentesis under ultrasound guidance by the radiologist using a 19-gauge paracentesis needle. 5500 mL of fluid is obtained. Serum albumin gradient (1.7 gm/dl - 1.4 gm/dl) = .3 gm/dl is low suggesting a primary peritoneal rather than a liver related portal hypertension etiology for the ascites. WBC 466/ul with 12% neutrophils, gram stain negative. GROSS DESCRIPTION: The specimen is received fresh in the lab in 5 glass aspiration containers appropriately designated, "paracentesis." Specimen consists of 5500 mL of straw-colored fluid. A 100 mL aliquot is processed with equal volume of cytospin fixative for cytospin's and cell block preparation. DIAGNOSIS: PERITONEAL CAVITY, ASCITES FLUID, PARACENTESIS: -METASTATIC ADENOCARCINOMA, SEE COMMENT COMMENT: Cytospin and cell block show some single and small groups of large cells with high NC ratio and nucleus hugging the cytoplasmic border. 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 Cytologic features are consistent with a metastasis to the peritoneum from proposed liver cholangiocarcinoma primary site. Scant proteinaceous debris, many lymphocytes, few mesothelial cells, few histiocytes, rare PMNs and rare RBCs. Findings are communicated to Dr. Dumont by voice on 02/11/2018 and final report is faxed on 02/12/2018.
--- NOTE | 2018-02-11 07:08 | DS ---
(1) Bile duct cancer Diagnosis(s): no treatment done during stay. feel is causing issues with liver and hypoalbuminemia and therefore his ascites. will have him resume chemo at next appt. Problem: Acute (2) Hyponatremia Diagnosis(s): resolved within 24hrs of admit with IVF of NS running at 125ml/hr. no further issues during stay. Problem: Resolved (3) Dehydration Problem: Resolved (4) Anorexia Diagnosis(s): ongoing issue due to cancer, maybe some depression. did not tolerate ensure. might go to glucerna or instant breakfast or what he tolerates. Problem: Acute (5) Leukocytosis Diagnosis(s): improving on current abx. still unsure of source. will continue abx for the next week. Problem: Acute Qualifiers: Leukocytosis type: leukemoid reaction Qualified Code(s): D72.823 - Leukemoid reaction (6) Foot pain, right Diagnosis(s): improved - source of infection? still with very purple toes, but not tender to palpation. will follow outpt. remind pt. to have oncology look at foot to be sure not a severe reaction to chemo. Problem: Acute (7) Diabetes mellitus Diagnosis(s): sugars finally improving so believe infection is being treated. will resume oral meds. Problem: Chronic Qualifiers: Diabetes mellitus type: type 2 Diabetes mellitus snf insulin use: without snf use Diabetes mellitus complication status: without complication Qualified Code(s): E11.9 - Type 2 diabetes mellitus without complications (8) Acute renal failure Problem: Resolved Qualifiers: Acute renal failure type: unspecified Qualified Code(s): N17.9 - Acute kidney failure, unspecified (9) Malnourished Diagnosis(s): continue to push high protein and high calorie foods. whatever he likes he needs to eat. d/w him at length. Problem: Acute Qualifiers: Malnutrition type: protein-calorie malnutrition Protein-calorie malnutrition severity: severe Qualified Code(s): E43 - Unspecified severe protein-calorie malnutrition (10) Constipation Diagnosis(s): will continue miralax, encourage fiber in diet. stop amlodipine due to low bp and constipation issues. may need to do prn dulcolax. Problem: Resolved Qualifiers: Constipation type: drug induced constipation Qualified Code(s): K59.03 - Drug induced constipation (11) Intractable pain Diagnosis(s): improved, continue oxycodone prn. Problem: Acute (12) Weakness Diagnosis(s): continue outpt. PT. Problem: Acute (13) Ascites Diagnosis(s): improved after paracentesis, but some reacummulation this am. consider spironolactone, but BP's need to be higher. Problem: Acute Qualifiers: Ascites type: other type Qualified Code(s): R18.8 - Other ascites (14) Discharge planning issues Diagnosis(s): will discharge to [place] with for additional care needs and hopefully better nutrition. Problem: Acute Description of Stay: see above. Procedures Performed: see notes below List Procedures: paracentesis Results and Findings: Pending Mircobiology Results 02/06/18 15:15 Blood Blood Culture - Preliminary NO GROWTH AFTER 48 HOURS Lab Pending Results 02/06/18 12:52: WBC 23.5 H, RBC 4.12 L, Hgb 10.9 L, Hct 34.4 L, MCV 83.5, MCH 26.5 L, MCHC 31.7 L, RDW 13.5, Plt Count 185, MPV 10.6, Neutrophils % (Manual) 89 H, Lymphocytes % (Manual) 1 L, Monocytes % (Manual) 5, Immature Granulocytes 5 H, Neutrophils # (Manual) 20.9 H, Lymphocytes # (Manual) 0.2 L, Monocytes # ( Manual) 1.2 H 02/06/18 12:52: Sodium 125 L, Plasma Sodium 128 L, Potassium 4.2, Chloride 93 L , Carbon Dioxide 28.4, Anion Gap 7.8, BUN 47 H D, Creatinine 1.57 H, Est GFR ( Non-Af Amer) 47 L, BUN/Creatinine Ratio 29.9 H, Random Glucose 284 H, Uric Acid 6.0, Calcium 9.1, Calcium Adj for Albumin 10.4 H, Total Bilirubin 0.4, AST 71 H , ALT 41, Alkaline Phosphatase 131, Total Protein 6.5, Albumin 2.0 L 02/06/18 15:39: Urine Color Yellow, Urine Appearance Clear, Urine pH 5.5, Ur Specific [place] 1.025, Urine Protein 15 H, Urine Glucose (UA) 500 H, Urine Ketones Negative, Urine Blood 250 H, Urine Nitrate Negative, Urine Bilirubin Negative, Prot Sulfosalicylic Acd 2+ H, Urine Urobilinogen Normal, Ur Leukocyte Esterase Negative, Urine RBC 5-10 H, Urine WBC 0-5, Ur Epithelial Cells 0-5, Triple Phos Crystals Few - 1+ H, Urine Bacteria Trace, Urine Mucus Trace 02/06/18 16:50: ESR 58 H 02/06/18 16:50: Lactic Acid, Venous 1.2 02/07/18 05:15: WBC 23.0 H, RBC 3.80 L, Hgb 10.1 L, Hct 31.9 L, MCV 83.9, MCH 26.6 L, MCHC 31.7 L, RDW 13.7, Plt Count 233, MPV 11.0, Neutrophils % (Manual) 88 H, Band Neuts % (Manual) 1, Lymphocytes % (Manual) 3 L, Monocytes % (Manual) 7, Immature Granulocytes 1, Neutrophils # (Manual) 20.2 H, Lymphocytes # (Manual ) 0.7 L, Monocytes # (Manual) 1.6 H, Platelet Estimate Normal, Polychromasia Trace, Hypochromasia Trace, Basophilic Stippling Trace 02/07/18 05:15: Sodium 136, Plasma Sodium 137, Potassium 4.1, Chloride 99, Carbon Dioxide 28.8, Anion Gap 12.3, BUN 40 H, Creatinine 1.27, Est GFR (Non-Af Amer) 59 L D, BUN/Creatinine Ratio 31.5 H, Random Glucose 141 H D, Calcium 8.5, Calcium Adj for Albumin 10.0, Total Bilirubin 0.4, AST 50 H, ALT 31, Alkaline Phosphatase 124, Total Protein 6.0 L, Albumin 1.7 L 02/08/18 05:35: WBC 17.5 H D, RBC 3.78 L, Hgb 10.0 L, Hct 32.9 L, MCV 87.0, MCH 26.5 L, MCHC 30.4 L, RDW 14.0, Plt Count 246, MPV 11.4 H, Immature Gran % (Auto ) 2.80 H, Immature Gran # (Auto) 0.49 H, Neutrophils % 86.2 H, Lymphocytes % 4.2 L, Monocytes % 6.4, Eosinophils % 0.2, Basophils % 0.2, Nucleated RBC % 0.0 , Neutrophils # 15.1 H, Lymphocytes # 0.74 L, Monocytes # 1.1 H, Eosinophils # 0.0, Absolute Basophils 0.0 02/09/18 13:29: WBC 20.4 H, RBC 3.65 L, Hgb 9.8 L, Hct 31.5 L, MCV 86.3, MCH 26.8 L, MCHC 31.1 L, RDW 14.1 H, Plt Count 428, MPV 10.5, Immature Gran % (Auto ) 2.20 H, Immature Gran # (Auto) 0.44 H, Neutrophils % 88.5 H, Lymphocytes % 2.9 L, Monocytes % 6.1, Eosinophils % 0.2, Basophils % 0.1, Nucleated RBC % 0.0 , Neutrophils # 18.0 H, Lymphocytes # 0.58 L, Monocytes # 1.2 H, Eosinophils # 0.0, Absolute Basophils 0.0 02/09/18 13:29: Sodium 139, Plasma Sodium 142, Potassium 3.8, Chloride 106, Carbon Dioxide 24.5, Anion Gap 12.3, BUN 27 H, Creatinine 1.15, Est GFR (Non-Af Amer) 67, BUN/Creatinine Ratio 23.5 H, Random Glucose 297 H D, Calcium 7.1 L, Calcium Adj for Albumin 8.7, Total Bilirubin 0.2, AST 54 H, ALT 25, Alkaline Phosphatase 125, Total Protein 5.8 L, Albumin 1.6 L 02/10/18 05:10: WBC 20.7 H, RBC 3.65 L, Hgb 9.5 L, Hct 31.8 L, MCV 87.1, MCH 26.0 L, MCHC 29.9 L, RDW 14.1 H, Plt Count 499 H, MPV 10.7, Immature Gran % ( Auto) 1.50 H, Immature Gran # (Auto) 0.32 H, Neutrophils % 87.0 H, Lymphocytes % 4.6 L, Monocytes % 6.1, Eosinophils % 0.6, Basophils % 0.2, Nucleated RBC % 0.0, Neutrophils # 18.0 H, Lymphocytes # 0.95 L, Monocytes # 1.3 H, Eosinophils # 0.1, Absolute Basophils 0.0 02/10/18 05:10: Sodium 139, Plasma Sodium 140, Potassium 3.6, Chloride 106, Carbon Dioxide 27.4, Anion Gap 9.2, BUN 23, Creatinine 1.12, Est GFR (Non-Af Amer) 69, BUN/Creatinine Ratio 20.5, Random Glucose 133 H D, Calcium 7.9, Calcium Adj for Albumin 9.4, Phosphorus 1.7 L, Magnesium 1.7, Total Bilirubin 0.3, AST 45, ALT 24, Alkaline Phosphatase 128, Total Protein 6.0 L, Albumin 1.7 L 02/10/18 05:10: PT 12.0 H, INR (Anticoag Therapy) 1.20 H, PTT (Amparo) 26.7 02/10/18 14:00: Peritoneal Tot Protein 3.3, Peritoneal Albumin 1.4, Peritoneal LDH 238, Peritoneal Glucose 235, Peritoneal Amylase 7, Peritoneal Cholesterol 81 , Peritoneal Triglycerid 33, Peritoneal Uric Acid 4.6 02/10/18 14:00: Fluid Color Yellow, Fluid Appearance Clear, Fluid WBC 466, Fluid RBC Greater than 1000.0 H, Fluid Neutrophils 12, Fluid Lymphocytes 75, Fluid Monocytes 5, Fluid Other Cells 8 02/11/18 04:55: ESR 54 H 02/11/18 04:55: WBC 16.1 H D, RBC 3.24 L, Hgb 8.5 L, Hct 27.8 L, MCV 85.8, MCH 26.2 L, MCHC 30.6 L, RDW 14.2 H, Plt Count 467 H, MPV 10.9, Immature Gran % ( Auto) 2.50 H, Immature Gran # (Auto) 0.40 H, Neutrophils % 85.6 H, Lymphocytes % 4.6 L, Monocytes % 6.6, Eosinophils % 0.6, Basophils % 0.1, Nucleated RBC % 0.0, Neutrophils # 13.8 H, Lymphocytes # 0.74 L, Monocytes # 1.1 H, Eosinophils # 0.1, Absolute Basophils 0.0 02/11/18 04:55: C-Reactive Prot, Quant 12.5 H Discharge Location: [facility] Disposition: [facility] Home Health Agency: [facility] Home Health Condition: [facility] Face to Face Encounter completed per CMS Guidelines: Yes Discharge Activity: Activity as tolerated Discharge Diet: Consistent carbs Referrals: Damian Dumont MD [Primary Care Provider] - One Week Additional Patient Instructions (free text): At discharge to go to [facility] to stay, please call and fax discharge information to them. [facility] new at discharge, please call and fax discharge orders to them. Prescriptions (Any new or edited meds): Clindamycin HCl [Cleocin] 600 mg PO Q12H #14 cap Levofloxacin [Levaquin] 750 mg PO DAILY@1100 #7 tab oxyCODONE HCL [Oxycodone] 5 mg PO Q4H PRN #90 tablet PRN Reason: Pain Polyethylene Glycol 3350 [Miralax] 17 gm PO DAILY #4 btl Complete Home Medications List: Complete Home Medication List: ascorbic acid (vitamin C) 500 mg tablet 500 mg PO DAILY 01/24/18 benazepril 40 mg tablet 20 mg PO DAILY tab 01/24/18 glyburide 5 mg tablet 10 mg PO BID tab 01/24/18 isosorbide mononitrate ER 30 mg tablet,extended release 24 hr 30 mg PO DAILY 09/08 lactobacillus rhamnosus R0011 20 billion cell capsule See Label Instructions PO DAILY 01/24/18 melatonin 5 mg tablet 5 mg PO HS PRN 01/24/18 metoprolol tartrate 50 mg tablet 25 mg PO BID tab 01/24/18 mirtazapine 30 mg tablet 30 mg PO HS 30 Days #30 tab 01/24/18 montelukast 10 mg tablet 10 mg PO QPM 01/24/18 pioglitazone 30 mg tablet 30 mg PO DAILY 90 Days #90 tab 01/24/18 ranitidine 75 mg tablet 75 mg PO DAILY PRN tab 01/24/18 sitagliptin 100 mg tablet 100 mg PO DAILY 90 Days #90 tab 01/24/18 zolpidem 10 mg tablet 10 mg PO HS tab 01/24/18 Clindamycin HCl [Cleocin] 600 mg PO Q12H #14 cap 02/11/18 Levofloxacin [Levaquin] 750 mg PO DAILY@1100 #7 tab 02/11/18 Polyethylene Glycol 3350 [Miralax] 17 gm PO DAILY #4 btl 02/11/18 oxyCODONE HCL [Oxycodone] 5 mg PO Q4H PRN #90 tablet 02/11/18
[2018-02-11] MEDS: INSULIN REGULAR, HUMAN 100 UNITS/ML VIAL SC SCH ×2 (07:09→11:45)
[2018-02-11] MEDS: CALCIUM CARBONATE/VITAMIN D3 1 TAB TABLET PO SCH (08:02)
[2018-02-11] MEDS: ENALAPRIL MALEATE 5 MG TABLET PO SCH (08:02)
[2018-02-11] MEDS: METOPROLOL TARTRATE 25 MG TABLET PO SCH (08:02)
[2018-02-11] MEDS: POLYETHYLENE GLYCOL 3350 119 GM BTL PO SCH (08:03)
[2018-02-11] MEDS: LEVOFLOXACIN 750 MG TABLET PO SCH (11:21)
[2018-02-11] MEDS: oxyCODONE HCL 5 MG TABLET PO PRN (11:22)
[2018-02-11 13:50] VITALS: BP 97/60
== END 2018-02-11 13:45 | disposition home health service (06) | DRG 640 ==
LOC: MS 11:12
PROVIDERS: ADMIT Family Medicine; ATTEND Family Medicine
DX: C78.7 Secondary malignant neoplasm of liver and intrahepatic bile duct; C24.0 Malignant neoplasm of extrahepatic bile duct; E11.9 Type 2 diabetes mellitus without complications; N17.9 Acute kidney failure, unspecified; D72.823 Leukemoid reaction; M79.671 Pain in right foot; J45.20 Mild intermittent asthma, uncomplicated; R18.8 Other ascites; K59.03 Drug induced constipation; R53.1 Weakness; E43 Unspecified severe protein-calorie malnutrition; E87.1 Hypo-osmolality and hyponatremia; I10 Essential (primary) hypertension; E86.0 Dehydration; E88.09 Other disorders of plasma-protein metabolism, not elsewhere classified; E78.5 Hyperlipidemia, unspecified
CPT/HCPCS: 36415; 49083; 73630; 80053; 81001; 82042; 82150; 82945; 82947; 83605; 83615; 83735; 84100; 84155; 84157; 84550; 84560; 85007; 85025; 85610; 85652; 85730; 86140; 87040; 87070; 87205; 88104; 88108; 88305; 89051; 97116; 97161; J2405

== ENCOUNTER 2018-02-14 06:39 | Inpatient (IN) ==
[2018-02-14] MEDS ORDERED: DEXTROSE 50%-WATER 50 ML SYRG ONE ×2 (06:43→06:50)
[2018-02-14] MEDS ORDERED: GLUCAGON,HUMAN RECOMBINANT 1 MG VIAL ONE (06:46)
[2018-02-14] MEDS ORDERED: WATER FOR INJECTION,STERILE 20 ML VIAL ONE (06:49)
[2018-02-14] MEDS ORDERED: GLUCAGON,HUMAN RECOMBINANT 1 MG VIAL IM ONE (06:50)
[2018-02-14] MEDS ORDERED: DEXTROSE 50%-WATER 50 ML SYRG IV ONE (06:54)
[2018-02-14] MEDS: DEXTROSE 5%-LACTATED RINGERS 1,000 ML IV PRN ×4 (06:55→21:35)
--- NOTE | 2018-02-14 07:24 | ERNOTE ---
Neuro HPI ER Record Date of Service: 02/14/18 Presenting Symptoms: other - decreased responsiveness Time Seen by Provider: 02/14/18 07:17 Source: patient Exam Limitations: clinical condition Allergies/Adverse Reactions: Allergies Allergy/AdvReac Type Severity Reaction Status Date / Time No Known Drug Allergies Allergy Verified 02/14/18 07:48 Home Medications: HOME MEDICATIONS ascorbic acid (vitamin C) 500 mg tablet 500 mg PO DAILY 01/24/18 [Last Taken Unknown] benazepril 40 mg tablet 20 mg PO DAILY tab 01/24/18 [Last Taken Unknown] glyburide 5 mg tablet 10 mg PO BID tab 01/24/18 [Last Taken Unknown] isosorbide mononitrate ER 30 mg tablet,extended release 24 hr 30 mg PO DAILY 09/08 [Last Taken Unknown] lactobacillus rhamnosus R0011 20 billion cell capsule See Label Instructions PO DAILY 01/24/18 [Last Taken Unknown] melatonin 5 mg tablet 5 mg PO HS PRN 01/24/18 [Last Taken Unknown] metoprolol tartrate 50 mg tablet 25 mg PO BID tab 01/24/18 [Last Taken Unknown] mirtazapine 30 mg tablet 30 mg PO HS 30 Days #30 tab 01/24/18 [Last Taken Unknown] montelukast 10 mg tablet 10 mg PO QPM 01/24/18 [Last Taken Unknown] pioglitazone 30 mg tablet 30 mg PO DAILY 90 Days #90 tab 01/24/18 [Last Taken Unknown] sitagliptin 100 mg tablet 100 mg PO DAILY 90 Days #90 tab 01/24/18 [Last Taken Unknown] zolpidem 10 mg tablet 10 mg PO HS tab 01/24/18 [Last Taken Unknown] Clindamycin HCl [Cleocin] 600 mg PO Q12H #14 cap 02/11/18 [Last Taken Unknown] Levofloxacin [Levaquin] 750 mg PO DAILY@1100 #7 tab 02/11/18 [Last Taken Unknown ] Polyethylene Glycol 3350 [Miralax] 17 gm PO DAILY #4 btl 02/11/18 [Last Taken Unknown] oxycodone 5 mg tablet 5 mg PO Q4H PRN #90 tab 02/11/18 [Last Taken Unknown] calcium carbonate 200 mg calcium (500 mg) chewable tablet 200 mg PO QID PRN #30 tab 02/12/18 [Last Taken Unknown] ondansetron HCl 4 mg tablet 4 mg PO QID PRN #30 tab 02/13/18 [Last Taken Unknown ] - History of Present Illness Narrative: Patient is a 73-year-old gentleman who has a past history of liver cancer presenting to emergency room with decreased responsiveness that started early this morning. He currently lives at an assisted living close to the hospital and the nursing staff went to get him ready for his doctor's appointment this morning when they noted that his responsiveness was decreased. Nursing staff couldn't document when this decreased responsiveness started. EMS was called and upon arrival blood sugar was noted to be 22. He is currently on chemotherapy for his liver cancer and has an appointment with his physician to decide whether he's got a transition to hospice this morning. Denies any prior history of decreased responsiveness, nausea, vomiting, headache , extremity weakness, - Character of Deficits Baseline Cognition: Present: alert, oriented x 4 Baseline Gait: Present: walks w/o assistance Review of Systems - Review of Systems Constitutional: Present: no symptoms reported ENT: Present: no symptoms reported Respiratory: Present: no symptoms reported Cardiology: Present: no symptoms reported Gastrointestinal/Abdominal: Present: no symptoms reported Genitourinary: Present: no symptoms reported Musculoskeletal: Present: no symptoms reported Skin: Present: no symptoms reported Neurological: Present: See HPI Endocrine: Present: no symptoms reported Hematologic/Lymphatic: Present: no symptoms reported Psych: Present: no symptoms reported Medical History (Last Reviewed 02/14/18 @ 07:48 by Benny Antonio RN) Hyperlipidemia (Chronic) Mild intermittent asthma in adult without complication (Chronic) Onset Date: ~ 10/25/17 Insomnia (Chronic) Onset Date: ~03/27/13 Hypertension (Chronic) Onset Date: ~03/27/13 Diabetes mellitus (Chronic) Chronic depression (Chronic) Onset Date: ~03/27/13 Abdominal pain (Chronic) Onset Date: ~03/27/13 Liver cancer Onset Date: Unknown Surgical History: Surgical History (Last Reviewed 02/14/18 @ 07:48 by Benny Antonio RN) H/O umbilical hernia repair Onset Date: ~07/20/11 History of testicular surgery Onset Date: ~1978 Hx of local excision of skin lesion Onset Date: ~03/07/07 S/P excision of lipoma Onset Date: ~08/01/12 Family History: Family History (Last Reviewed 02/14/18 @ 07:48 by Benny Antonio RN) Father Myocardial infarction Skin cancer Heart disease Hypertension Mother CHF (congestive heart failure) Hypertension Heart disease Sister Hypertension Social History: Preferred Language Georgian Physical Exam - Physical Exam General Appearance: Present: wd/wn, other - initially upon arrival his examination was limited by his medical condition. However after patient received an amp of glucose and D5 lactated Ringer patient was alert, oriented to time person and place. Head Exam: Present: normal inspection, no evidence of injury Eye Exam: Normal inspection: bilateral, PERRL: bilateral, EOMI: bilateral Ears, Nose, Throat: Present: normal ENT inspection, normal except -, other - he appears to have a left-sided tongue deviation Neck: Present: normal inspection, nontender, supple, full range of motion, carotid bruit Respiratory: Present: no respiratory distress, normal breath sounds, no accessory muscle use Cardiovascular/Chest: Present: regular rate, rhythm, no murmur, normal peripheral pulses Gastrointestinal/Abdominal: Present: normal bowel sounds, nontender - appears to have a distended abdomen Back Exam: Present: normal inspection, normal range of motion Extremity Exam: Present: normal inspection Neurological Exam: Present: alert, oriented, normal mood/affect Skin Exam: Present: normal color ED Progress - Results and Orders Patient's Lab Results:: I have reviewed the patient's lab results. - Vital Signs Patient's Vital Signs:: I have reviewed the patient's vital signs. - EKG EKG: supraventricular tachycardia EKG read: Reviewed by me - CT/Ultrasound CT/Ultrasound Narrative: CT of the head discussed with the radiologist who didn't find any acute pathology - Progress/Reassessment Progress:: Improved Progress Note-Subjective: 02/14/18 07:23 Upon arrival patient was noted to have sonorous breath sounds and his responsiveness was decreased. She was given a IM glucagon shot 1 mg 1. In addition patient was also given an amp of D50 immediately after and IV fluid access was obtained. He was also started on D5 lactated ringer. A few minutes after the above intervention patient was alert oriented to person place and time. He can tell me about his sister and his medical condition. I discussed with the radiologist regarding the CT of the head that didn't really find any acute abnormality. EKG that was done was consistent with supraventricular tachycardia with a ventricular rate of 130. He appears to be shivering which can also account for the rate. ABG that was obtained is consistent with a pH of 7.34, PCO2 of 42.2. PO2 of 52.4. Bicarbonate of 22.5. Family was at bedside during my reassessment. I was able to discuss with them regarding the CT findings of the head at this time. 02/14/18 07:45 - Transfer of Care Physician Sign Out: Yash Turpin Receiving Physician: Gustavo Liao Pending Results: Labs Departure Clinical Impression: Altered mental status Qualifiers: Altered mental status type: transient alteration of awareness Qualified Code(s) : R40.4 - Transient alteration of awareness - Departure Disposition: Still a patient Condition: Fair Referrals: Damian Dumont MD [Primary Care Provider] -
[2018-02-14 07:48] LABS: Hematocrit 30.4 % (42.0-52.0); Mean Cell Volume 88.9 fl (78-100); Mean Corpuscular Hemoglobin 26.3 pg (27-31); Mean Corpuscular Hgb Conc 29.6 g/dl (32-36); Mean Platelet Volume 10.3 fl (8-11.3); Platelet Count 496 K/mm3 (150-450); Red Blood Count 3.42 M/mm3 (4.7-6.0); Red Cell Distribution Width 14.9 % (11.5-14.0); White Blood Count 20.9 K/mm3 (4.0-10.5)
[2018-02-14 07:50] LABS: Total Cells Counted 100
[2018-02-14 07:58] LABS: ALT 16 U/L (19-67); AST 34 U/L (0-48); Acetaminophen * 1.2 mcg/mL (10.0-30.0); Albumin * 1.3 gm/dl (3.4-5.0); Alkaline Phosphatase * 104 U/L (50-170); Anion Gap 11.2 mmol/L (6.8-13.8); Bilirubin, Total 0.2 mg/dL (0.0-1.1); Blood Urea Nitrogen 27 mg/dL (6-23); Ca. Corrected For Albumin 9.6 mg/dL (8.4-10.2); Calcium * 7.8 mg/dL (7.9-10.9); Carbon Dioxide 26.6 mmol/L (24-32.6); Chloride 105 mmol/L (97-106); Glucose * 308 mg/dL (70-110); Potassium 4.8 mmol/L (3.4-4.6); Salicylate Less than 2.8 mg/dL (2.8-20.0); Sodium 138 mmol/L (132-142); Total Protein 5.1 gm/dL (6.2-8.2)
[2018-02-14 08:35] LABS: Prothrombin Time (Patient) 13.8 Seconds (9.0-11.0)
[2018-02-14 08:44] LABS: INR 1.38 INR (0.90-1.10)
[2018-02-14 08:55] LABS: Urine Bilirubin Negative (NEGATIVE); Urine Blood Negative /ul (NEGATIVE); Urine Ketone Negative (NEGATIVE); Urine Nitrite Negative (NEGATIVE); Urine Protein Negative (NEGATIVE); Urine Urobilinogen Normal (NORMAL)
[2018-02-14 09:04] LABS: Urine Amorphous Sediment Moderate - 2+ (NONE-FEW); Urine Appearance Cloudy (CLEAR); Urine Bacteria 1+; Urine Color Yellow; Urine RBC 0-5 /hpf (0-5)
[2018-02-14 09:07] LABS: Immature Granulocyte 3 (0-1); Lymphocyte 8 % (20-51); Monocyte 10 % (0-9); Neutrophil 79 % (42-75); Neutrophil # 16.5 K/mm3 (1.3-6.0)
[2018-02-14 09:11] LABS: Cocaine Ur Negative (NEGATIVE); Urine Barbiturate Negative (NEGATIVE); Urine Benzodiazepines Negative (NEGATIVE); Urine Opiates Negative (NEGATIVE); Urine PCP Negative (NEGATIVE); Urine THC Negative (NEGATIVE)
[2018-02-14] MEDS ORDERED: DEXTROSE 5%-LACTATED RINGERS 500 ML IV PRN (10:24)
[2018-02-14 10:33] LABS: Prothrombin Time (Patient) 14.3 Seconds (9.0-11.0)
[2018-02-14 10:34] LABS: INR 1.42 INR (0.90-1.10); Partial Thrombolplastin Time 27.8 Seconds (24-32)
--- NOTE | 2018-02-14 11:07 | HP ---
Chief Complaint - Chief Complaint Date of Service: 02/14/18 Time of Service: 10:51 Chief Complaint: unresponsive, hypoglycemia, hypotension History of Present Illness: Pt. is 73 yo WM with PMH of recent infection of unknown origin, was recently discharged from hospital on abx and was doing well until the day of admission when he was found unresponsive at the [place]. He has liver mets with signs of failure during last admission, had been restarted on his oral DM meds and was found to have a glucose of 28. This was corrected with D50 IVP, but SBP were in the 80's, HR 120's and he was hypoxic in the mid 80's with tachypnea in the 30's requiring 2LNC to bring his sats into the mid 90's. when I saw him he was aware that things were not going well and asked only that we control his pain and breathing and make him comfortable, with referral to hospice. Medical History (Last Reviewed 02/14/18 @ 07:48 by Benny Antonio RN) Hyperlipidemia (Chronic) Mild intermittent asthma in adult without complication (Chronic) Onset Date: ~ 10/25/17 Insomnia (Chronic) Onset Date: ~03/27/13 Hypertension (Chronic) Onset Date: ~03/27/13 Diabetes mellitus (Chronic) Chronic depression (Chronic) Onset Date: ~03/27/13 Abdominal pain (Chronic) Onset Date: ~03/27/13 Liver cancer Onset Date: Unknown Surgical History: Surgical History (Last Reviewed 02/14/18 @ 07:48 by Benny Antonio RN) H/O umbilical hernia repair Onset Date: ~07/20/11 History of testicular surgery Onset Date: ~1978 Hx of local excision of skin lesion Onset Date: ~03/07/07 S/P excision of lipoma Onset Date: ~08/01/12 Family History: Family History (Last Reviewed 02/14/18 @ 07:48 by Benny Antonio RN) Father Myocardial infarction Skin cancer Heart disease Hypertension Mother CHF (congestive heart failure) Hypertension Heart disease Sister Hypertension Social History: Patient Lives/Resources [place] Utilized Occupation retired Preferred Language Chadian Do you have any yazdanism or No cultural preference? Smoking Status Former smoker Have you smoked in the past 12 No months Alcohol Use none Drug Use none Review Of Systems (GEN) - Review of Systems Generalized/Overall Review: Present: Weakness. Absent: Chills, Fever EENTM: Present: No Symptoms Reported Respiratory: Present: Shortness of Breath Cardiac: Present: Edema, Palpitations Abdominal: Present: Nausea. Absent: Vomiting, Abdominal Pain, Constipation, Diarrhea Genitourinary: Present: No Symptoms Reported Musculoskeletal: Present: Joint Pain - right foot is extremely painful again. Neurological: Present: No Symptoms Reported Skin: Present: No Symptoms Reported Endocrine: Present: No Symptoms Reported Immunizations: IMMUNIZATION HX Immunizations Up to Date Yes History of Influenza Vaccine Yes Hx Pneumococcal Vaccination Yes Allergies/Adverse Reactions: Allergies Allergy/AdvReac Type Severity Reaction Status Date / Time No Known Drug Allergies Allergy Verified 02/14/18 07:48 Home Medications: HOME MEDICATIONS ascorbic acid (vitamin C) 500 mg tablet 500 mg PO DAILY 01/24/18 [Last Taken Unknown] benazepril 40 mg tablet 20 mg PO DAILY tab 01/24/18 [Last Taken Unknown] glyburide 5 mg tablet 10 mg PO BID tab 01/24/18 [Last Taken Unknown] isosorbide mononitrate ER 30 mg tablet,extended release 24 hr 30 mg PO DAILY 09/08 [Last Taken Unknown] lactobacillus rhamnosus R0011 20 billion cell capsule See Label Instructions PO DAILY 01/24/18 [Last Taken Unknown] melatonin 5 mg tablet 5 mg PO HS PRN 01/24/18 [Last Taken Unknown] metoprolol tartrate 50 mg tablet 25 mg PO BID tab 01/24/18 [Last Taken Unknown] mirtazapine 30 mg tablet 30 mg PO HS 30 Days #30 tab 01/24/18 [Last Taken Unknown] montelukast 10 mg tablet 10 mg PO QPM 01/24/18 [Last Taken Unknown] pioglitazone 30 mg tablet 30 mg PO DAILY 90 Days #90 tab 01/24/18 [Last Taken Unknown] sitagliptin 100 mg tablet 100 mg PO DAILY 90 Days #90 tab 01/24/18 [Last Taken Unknown] zolpidem 10 mg tablet 10 mg PO HS tab 01/24/18 [Last Taken Unknown] Clindamycin HCl [Cleocin] 600 mg PO Q12H #14 cap 02/11/18 [Last Taken Unknown] Levofloxacin [Levaquin] 750 mg PO DAILY@1100 #7 tab 02/11/18 [Last Taken Unknown ] Polyethylene Glycol 3350 [Miralax] 17 gm PO DAILY #4 btl 02/11/18 [Last Taken Unknown] oxycodone 5 mg tablet 5 mg PO Q4H PRN #90 tab 02/11/18 [Last Taken Unknown] calcium carbonate 200 mg calcium (500 mg) chewable tablet 200 mg PO QID PRN #30 tab 02/12/18 [Last Taken Unknown] ondansetron HCl 4 mg tablet 4 mg PO QID PRN #30 tab 02/13/18 [Last Taken Unknown ] Exam - Exam Vital Signs: Vital Signs - Last Taken Temp 36.6 C 02/14/18 09:50 Pulse 125 H 02/14/18 09:50 Resp 30 H 02/14/18 09:50 BP 84/47 L 02/14/18 09:50 Pulse Ox 99 02/14/18 09:50 Constitutional: Present: Alert, Oriented x3, Cooperative, Mild distress ENT Exam: Present: hearing grossly normal Eye Exam: bilateral eye: normal inspection, PERRL, EOMI Neck: Present: supple Respiratory: Present: lungs clear, normal breath sounds, no respiratory distress Cardiovascular/Chest: Present: tachycardia Abdomen: Present: Normal bowel sounds, soft, no rebound tenderness, other - dullness to percussion on the sides to 1/[address] up - c/w ascites, distended Extremity: Present: no calf tenderness, pedal edema, other - ecchymosis of right toe tips, very TTP mid foot with mild ecchymosis Skin Exam: Present: normal color, mottled - right foot Neurologic: Present: normal mood/affect, oriented x 3 Appearance: Present: appropriate appearance, appropriate insight, neat, no memory impairment Eye contact: Present: cooperative, good eye contact, normal speech Thoughts: Present: normal thought pattern, no apparent hallucination Diagnostic Studies: Abnormal Lab Results 02/14/18 02/14/18 02/14/18 Range/Units 06:57 07:38 07:38 WBC 20.9 H (4.0-10.5) K/mm3 RBC 3.42 L (4.7-6.0) M/mm3 Hgb 9.0 L (13.5-18.0) gm/dL Hct 30.4 L (42.0-52.0) % MCH 26.3 L (27-31) pg MCHC 29.6 L (32-36) g/dl RDW 14.9 H (11.5-14.0) % Plt Count 496 H (150-450) K/mm3 Neutrophils % (Manual) 79 H (42-75) % Lymphocytes % (Manual) 8 L (20-51) % Monocytes % (Manual) 10 H (0-9) % Immature Granulocytes 3 H (0-1) Neutrophils # (Manual) 16.5 H (1.3-6.0) K/mm3 Monocytes # (Manual) 2.1 H (0.0-1.0) k/mm3 PT (9.0-11.0) Seconds INR (Anticoag Therapy) (0.90-1.10) INR pO2 52.4 L (83.0-108.0) mmHg Base Excess -3.1 L (-2.0-3.0) mmol/L ABG pH 7.34 L (7.35-7.45) ABG O2 Sat (Measured) 85.2 L (94.0-98.0) % Potassium 4.8 H D (3.4-4.6) mmol/L BUN 27 H (6-23) mg/dL Creatinine 1.42 H (0.4-1.4) mg/dL Est GFR (Non-Af Amer) 52 L D (60-130) mL/min Random Glucose 308 H (70-110) mg/dL Lactic Acid, Venous (0.4-2.0) mmol/L Calcium 7.8 L (7.9-10.9) mg/dL ALT 16 L (19-67) U/L Total Protein 5.1 L (6.2-8.2) gm/dL Albumin 1.3 L (3.4-5.0) gm/dl Ur Leukocyte Esterase (NEGATIVE) /ul Urine WBC (0-5) /hpf Amorphous Sediment (NONE-FEW) Urine Bacteria (NONE) Salicylates Less than 2.8 L (2.8-20.0) mg/dL Acetaminophen 1.2 L (10.0-30.0) mcg/mL 02/14/18 02/14/18 02/14/18 Range/Units 07:38 08:41 08:50 WBC (4.0-10.5) K/mm3 RBC (4.7-6.0) M/mm3 Hgb (13.5-18.0) gm/dL Hct (42.0-52.0) % MCH (27-31) pg MCHC (32-36) g/dl RDW (11.5-14.0) % Plt Count (150-450) K/mm3 Neutrophils % (Manual) (42-75) % Lymphocytes % (Manual) (20-51) % Monocytes % (Manual) (0-9) % Immature Granulocytes (0-1) Neutrophils # (Manual) (1.3-6.0) K/mm3 Monocytes # (Manual) (0.0-1.0) k/mm3 PT 13.8 H (9.0-11.0) Seconds INR (Anticoag Therapy) 1.38 H (0.90-1.10) INR pO2 (83.0-108.0) mmHg Base Excess (-2.0-3.0) mmol/L ABG pH (7.35-7.45) ABG O2 Sat (Measured) (94.0-98.0) % Potassium (3.4-4.6) mmol/L BUN (6-23) mg/dL Creatinine (0.4-1.4) mg/dL Est GFR (Non-Af Amer) (60-130) mL/min Random Glucose (70-110) mg/dL Lactic Acid, Venous 2.3 H* (0.4-2.0) mmol/L Calcium (7.9-10.9) mg/dL ALT (19-67) U/L Total Protein (6.2-8.2) gm/dL Albumin (3.4-5.0) gm/dl Ur Leukocyte Esterase 25 H (NEGATIVE) /ul Urine WBC 5-10 H (0-5) /hpf Amorphous Sediment Moderate - 2+ H (NONE-FEW) Urine Bacteria 1+ H (NONE) Salicylates (2.8-20.0) mg/dL Acetaminophen (10.0-30.0) mcg/mL 02/14/18 Range/Units 08:50 WBC (4.0-10.5) K/mm3 RBC (4.7-6.0) M/mm3 Hgb (13.5-18.0) gm/dL Hct (42.0-52.0) % MCH (27-31) pg MCHC (32-36) g/dl RDW (11.5-14.0) % Plt Count (150-450) K/mm3 Neutrophils % (Manual) (42-75) % Lymphocytes % (Manual) (20-51) % Monocytes % (Manual) (0-9) % Immature Granulocytes (0-1) Neutrophils # (Manual) (1.3-6.0) K/mm3 Monocytes # (Manual) (0.0-1.0) k/mm3 PT 14.3 H (9.0-11.0) Seconds INR (Anticoag Therapy) 1.42 H (0.90-1.10) INR pO2 (83.0-108.0) mmHg Base Excess (-2.0-3.0) mmol/L ABG pH (7.35-7.45) ABG O2 Sat (Measured) (94.0-98.0) % Potassium (3.4-4.6) mmol/L BUN (6-23) mg/dL Creatinine (0.4-1.4) mg/dL Est GFR (Non-Af Amer) (60-130) mL/min Random Glucose (70-110) mg/dL Lactic Acid, Venous (0.4-2.0) mmol/L Calcium (7.9-10.9) mg/dL ALT (19-67) U/L Total Protein (6.2-8.2) gm/dL Albumin (3.4-5.0) gm/dl Ur Leukocyte Esterase (NEGATIVE) /ul Urine WBC (0-5) /hpf Amorphous Sediment (NONE-FEW) Urine Bacteria (NONE) Salicylates (2.8-20.0) mg/dL Acetaminophen (10.0-30.0) mcg/mL Laboratory Results WBC 20.9 K/mm3 (4.0-10.5) H 02/14/18 07:38 RBC 3.42 M/mm3 (4.7-6.0) L 02/14/18 07:38 Hgb 9.0 gm/dL (13.5-18.0) L 02/14/18 07:38 Hct 30.4 % (42.0-52.0) L 02/14/18 07:38 MCV 88.9 fl (78-100) 02/14/18 07:38 MCH 26.3 pg (27-31) L 02/14/18 07:38 MCHC 29.6 g/dl (32-36) L 02/14/18 07:38 RDW 14.9 % (11.5-14.0) H 02/14/18 07:38 Plt Count 496 K/mm3 (150-450) H 02/14/18 07:38 MPV 10.3 fl (8-11.3) 02/14/18 07:38 Neutrophils % (Manual) 79 % (42-75) H 02/14/18 07:38 Lymphocytes % (Manual) 8 % (20-51) L 02/14/18 07:38 Monocytes % (Manual) 10 % (0-9) H 02/14/18 07:38 Immature Granulocytes 3 (0-1) H 02/14/18 07:38 Neutrophils # (Manual) 16.5 K/mm3 (1.3-6.0) H 02/14/18 07:38 Lymphocytes # (Manual) 1.7 k/mm3 (1.5-3.5) 02/14/18 07:38 Monocytes # (Manual) 2.1 k/mm3 (0.0-1.0) H 02/14/18 07:38 PT 14.3 Seconds (9.0-11.0) H 02/14/18 08:50 INR (Anticoag Therapy) 1.42 INR (0.90-1.10) H 02/14/18 08:50 PTT ([place]) 27.8 Seconds (24-32) 02/14/18 08:50 pCO2 42.2 mmHg (35.0-48.0) 02/14/18 06:57 pO2 52.4 mmHg (83.0-108.0) L 02/14/18 06:57 HCO3 22.5 mmol/L (21.0-28.0) 02/14/18 06:57 Total CO2 23.8 mmol/L (19.0-24.0) 02/14/18 06:57 Base Excess -3.1 mmol/L (-2.0-3.0) L 02/14/18 06:57 ABG pH 7.34 (7.35-7.45) L 02/14/18 06:57 ABG O2 Sat (Measured) 85.2 % (94.0-98.0) L 02/14/18 06:57 Sodium 138 mmol/L (132-142) 02/14/18 07:38 Plasma Sodium 141 mmol/L (130-142) 02/14/18 07:38 Potassium 4.8 mmol/L (3.4-4.6) H D 02/14/18 07:38 Chloride 105 mmol/L (97-106) 02/14/18 07:38 Carbon Dioxide 26.6 mmol/L (24-32.6) 02/14/18 07:38 Anion Gap 11.2 mmol/L (6.8-13.8) 02/14/18 07:38 BUN 27 mg/dL (6-23) H 02/14/18 07:38 Creatinine 1.42 mg/dL (0.4-1.4) H 02/14/18 07:38 Est GFR (Non-Af Amer) 52 mL/min (60-130) L D 02/14/18 07:38 BUN/Creatinine Ratio 19.0 (9.0-21.6) 02/14/18 07:38 Random Glucose 308 mg/dL (70-110) H 02/14/18 07:38 Lactic Acid, Venous 2.3 mmol/L (0.4-2.0) H* 02/14/18 08:50 Calcium 7.8 mg/dL (7.9-10.9) L 02/14/18 07:38 Calcium Adj for Albumin 9.6 mg/dL (8.4-10.2) 02/14/18 07:38 Total Bilirubin 0.2 mg/dL (0.0-1.1) 02/14/18 07:38 AST 34 U/L (0-48) 02/14/18 07:38 ALT 16 U/L (19-67) L 02/14/18 07:38 Alkaline Phosphatase 104 U/L (50-170) 02/14/18 07:38 Ammonia Less than 17.0 mcmol/L (11-35) 02/14/18 08:50 Total Protein 5.1 gm/dL (6.2-8.2) L 02/14/18 07:38 Albumin 1.3 gm/dl (3.4-5.0) L 02/14/18 07:38 Urine Color Yellow 02/14/18 08:41 Urine Appearance Cloudy (CLEAR) 02/14/18 08:41 Urine pH 7.0 pH (5.0-7.0) 02/14/18 08:41 Ur Specific Cyril 1.020 SP.GR. (1.005-1.030) 02/14/18 08:41 Urine Protein Negative mg/dL (NEGATIVE) 02/14/18 08:41 Urine Glucose (UA) Negative mg/dL (NEGATIVE) 02/14/18 08:41 Urine Ketones Negative mg/dL (NEGATIVE) 02/14/18 08:41 Urine Blood Negative /ul (NEGATIVE) 02/14/18 08:41 Urine Nitrate Negative (NEGATIVE) 02/14/18 08:41 Urine Bilirubin Negative mg/dl (NEGATIVE) 02/14/18 08:41 Urine Urobilinogen Normal EU/dl (NORMAL) 02/14/18 08:41 Ur Leukocyte Esterase 25 /ul (NEGATIVE) H 02/14/18 08:41 Urine RBC 0-5 /hpf (0-5) 02/14/18 08:41 Urine WBC 5-10 /hpf (0-5) H 02/14/18 08:41 Ur Epithelial Cells 0-5 /hpf (0-5) 02/14/18 08:41 Amorphous Sediment Moderate - 2+ (NONE-FEW) H 02/14/18 08:41 Urine Bacteria 1+ (NONE) H 02/14/18 08:41 Urine Culture Comments Culture to follow 02/14/18 08:41 Salicylates Less than 2.8 mg/dL (2.8-20.0) L 02/14/18 07:38 Urine Opiates Screen Negative (NEGATIVE) 02/14/18 08:41 Acetaminophen 1.2 mcg/mL (10.0-30.0) L 02/14/18 07:38 Barbiturate Screen Negative (NEGATIVE) 02/14/18 08:41 Ur Phencyclidine Scrn Negative (NEGATIVE) 02/14/18 08:41 Urine Amphetamine Negative (NEGATIVE) 02/14/18 08:41 U Benzodiazepines Scrn Negative (NEGATIVE) 02/14/18 08:41 Urine Cocaine Screen Negative (NEGATIVE) 02/14/18 08:41 Urine Marijuana (THC) Negative (NEGATIVE) 02/14/18 08:41 Assessment/Plan - Assessment/Plan (1) Hypoglycemia Assessment: continue D5LR at 150ml/hr, liberalize diet. D50 IVP prn sugars < 70. due to liver mets and probably a developing hepatorenal syndrome his sugars went low due to loss of compensation from liver, metabolism of sugars by cancer, decreased metabolism of his glyburide and decreased excretion of the glyburide through the bile and kidneys. Definitely will stop all his oral DM meds, but still can take a good 40hrs for the glyburide to get out of his system so may need to remain on D5LR during this time frame. Problem: Acute (2) Hypotension Assessment: Severe in nature - due to liver failure, hypoalbuminemia and 3rd spacing of fluids. Will continue fluids to maintain pressures, thought this has risks of worsening Ascites. will hold all BP meds, though may need to do prn lasix for ascites. May be difficult to maintain pressures without IVF. Problem: Acute Qualifiers: Hypotension type: hypotension due to hypovolemia Qualified Code(s): I95.89 - Other hypotension; E86.1 - Hypovolemia (3) Bile duct cancer Assessment: this may be contributing to ARF, hypoglycemia due to effect on met to liver. Problem: Chronic (4) Intractable pain Assessment: will do IV morphine prn, but the may cause hypotension so will have to monitor closely. could do toradol as it shouldn't effect BP except in a posiitive direction. Problem: Acute (5) Ascites Assessment: see comments under hypotension Problem: Acute Qualifiers: (6) End of life care Assessment: Pt. has advanced metastatic cancer. Would be appropriate for hospice as his life expectancy is definitely < 6months. Will consult hospice. D/w pt. and his sister, PATTI and friend. Problem: Acute (7) Discharge planning issues Assessment: Anticipate pt. being here a minimum of 2 midnights as he needs to be off IVF with glucose and maintaining his sugars > 90 and off or qualified for O2 and for BP's to be stable without IVF before he can be discharged. It can take up to 40 hrs for the glyburide to get out of his system, so can't be confident his blood sugars will remain stable without further intervention for at least 24hrs without a 2 [place] stay. Problem: Acute (8) Acute respiratory failure Assessment: not sure the cause of his ARF except possibly mets to his lungs, though could be PE. Due to guarded condition of patient and being terminal, would not pursue work-up for PE. It's also possible that his ascites may be causing significant hypoventilation as another explanation. Problem: Acute
[2018-02-14] MEDS: MORPHINE SULFATE 2 MG/ML DISP.SYRIN IV PRN ×6 (11:17→22:46)
[2018-02-14] MEDS ORDERED: NORMAL SALINE 500 ML IV ONE ×2 (12:31→12:39)
[2018-02-14] MEDS ORDERED: KETOROLAC TROMETHAMINE 30 MG/ML VIAL IV ONE (12:32)
[2018-02-14] MEDS ORDERED: ONDANSETRON HCL/PF 2 MG/ML VIAL IV PRN (12:51)
[2018-02-14] MEDS ORDERED: oxyCODONE HCL 5 MG TABLET PO PRN (14:48)
[2018-02-14] MEDS ORDERED: CALCIUM CARBONATE 500 MG TAB.CHEW PO PRN (14:48)
[2018-02-14] MEDS ORDERED: ONDANSETRON HCL 4 MG TABLET PO PRN (14:48)
[2018-02-14] MEDS: MORPHINE SULFATE 10 MG/0.5 ML SYRINGE PO PRN ×4 (15:15→22:08)
[2018-02-14] MEDS ORDERED: NALOXONE HCL 0.4 MG/ML VIAL IV STA (16:39)
[2018-02-14] MEDS ORDERED: NALOXONE HCL 0.4 MG/ML VIAL IV PRN (16:42)
[2018-02-14] MEDS: LORazepam 2 MG/ML DISP.SYRIN IV PRN ×2 (16:54→22:52)
[2018-02-15] MEDS: MORPHINE SULFATE 10 MG/0.5 ML SYRINGE PO PRN ×4 (00:08→08:11)
[2018-02-15] MEDS: MORPHINE SULFATE 2 MG/ML DISP.SYRIN IV PRN ×3 (01:14→06:02)
[2018-02-15] MEDS: DEXTROSE 5%-LACTATED RINGERS 1,000 ML IV PRN (04:38)
--- NOTE | 2018-02-15 07:21 | DS ---
(1) Hypoglycemia Problem: Acute (2) Hypotension Problem: Acute Qualifiers: Hypotension type: hypotension due to hypovolemia Qualified Code(s): I95.89 - Other hypotension; E86.1 - Hypovolemia (3) Bile duct cancer Problem: Chronic (4) Intractable pain Problem: Acute (5) Ascites Problem: Acute Qualifiers: (6) End of life care Problem: Acute (7) Discharge planning issues Problem: Acute (8) Acute respiratory failure Problem: Acute Description of Stay: Pt was brought to hospital unresponsive, found to have a glucose of 28, given D50, which did revive him, but he remained hypotense and lethargic with concerns for maintaining his sugars so was admitted for IVF with D5 for both his sugars and pressures. He had to be given 3 boluses of IVF to help keep his pressures in the 80's and then run at 150ml/hr. His SBP's went from low 80's and were in the upper 90's at time of discharge. His ascites had reaccumulated and this was causing some breathing issues and difficulties maintaining his sats except on O2. Due to what transpired it was obvious his cancer was progressing rapidly and effecting him greatly and after discussion with Dieudonne it was felt best to look to comfort care and hospice. He was accepted by [facility]. He has had a great deal of pain in his right foot for which he received both oral and IV pain meds, with the IV meds being the most effective in controlling his pain. A RELAY ASSOCIATE at [facility]osp[facility] would be warranted to allow patient better control of his pain and providing comfort to him. The morning of discharge he was feeling more scared as he was no longer to move his right leg and was concerned that things were progressing very fast. He did have slight right sided UE weakness compared to the left, but no facial assymetry or droop. tongue did protrude to the left. It is possible he has mets to the brain and this is causing further issues or his cancer has caused some embolic strokes of the brain, further progressing him. due to being on hospice, this was not further investigated. It is also possible that his pain meds are causing some weakness too as he was alert, but speech slurred and he was more drowsy this am. He was discharged in stable condition. Will continue him on IVF for now to help maintain BP's. All his home meds were stopped except those that could provide comfort and pain control. Ativan IV was started last night and this can be continued. He will need to go by ambulance due to continued BP monitoring, IVF and O2 needs and now with right sided weakness will need transfer care that will not be safely possible by family or other means. Procedures Performed: none Results and Findings: Lab Pending Results 02/14/18 06:57: pCO2 42.2, pO2 52.4 L, HCO3 22.5, Total CO2 23.8, Base Excess - 3.1 L, ABG pH 7.34 L, ABG O2 Sat (Measured) 85.2 L 02/14/18 07:38: WBC 20.9 H, RBC 3.42 L, Hgb 9.0 L, Hct 30.4 L, MCV 88.9, MCH 26.3 L, MCHC 29.6 L, RDW 14.9 H, Plt Count 496 H, MPV 10.3, Neutrophils % ( Manual) 79 H, Lymphocytes % (Manual) 8 L, Monocytes % (Manual) 10 H, Immature Granulocytes 3 H, Neutrophils # (Manual) 16.5 H, Lymphocytes # (Manual) 1.7, Monocytes # (Manual) 2.1 H 02/14/18 07:38: Sodium 138, Plasma Sodium 141, Potassium 4.8 H D, Chloride 105, Carbon Dioxide 26.6, Anion Gap 11.2, BUN 27 H, Creatinine 1.42 H, Est GFR (Non- Af Amer) 52 L D, BUN/Creatinine Ratio 19.0, Random Glucose 308 H, Calcium 7.8 L , Calcium Adj for Albumin 9.6, Total Bilirubin 0.2, AST 34, ALT 16 L, Alkaline Phosphatase 104, Total Protein 5.1 L, Albumin 1.3 L, Salicylates Less than 2.8 L , Acetaminophen 1.2 L 02/14/18 07:38: PT 13.8 H, INR (Anticoag Therapy) 1.38 H 02/14/18 08:41: Urine Color Yellow, Urine Appearance Cloudy, Urine pH 7.0, Ur Specific [place] 1.020, Urine Protein Negative, Urine Glucose (UA) Negative, Urine Ketones Negative, Urine Blood Negative, Urine Nitrate Negative, Urine Bilirubin Negative, Urine Urobilinogen Normal, Ur Leukocyte Esterase 25 H, Urine RBC 0-5, Urine WBC 5-10 H, Ur Epithelial Cells 0-5, Amorphous Sediment Moderate - 2+ H, Urine Bacteria 1+ H, Urine Culture Comments Culture to follow 02/14/18 08:41: Urine Opiates Screen Negative, Barbiturate Screen Negative, Ur Phencyclidine Scrn Negative, Urine Amphetamine Negative, U Benzodiazepines Scrn Negative, Urine Cocaine Screen Negative, Urine Marijuana (THC) Negative 02/14/18 08:50: Ammonia Less than 17.0 02/14/18 08:50: Lactic Acid, Venous 2.3 H* 02/14/18 08:50: PT 14.3 H, INR (Anticoag Therapy) 1.42 H, PTT (Schuyler) 27.8 02/14/18 13:30: Lactic Acid, Venous 2.3 H* Discharge Location: Other Disposition: Hospice Medical Facility Condition: Fair Discharge Activity: Activity as tolerated Discharge Diet: General/regular food Referrals: Damian Dumont MD [Primary Care Provider] - Additional Patient Instructions (free text): Please fax discharge orders and hospice orders to [facility] at Complete Home Medications List: Complete Home Medication List: Dextrose 5%-Lactated Ringers [Dextrose 5%-LR] 150 ml IV .[id number] PRN #50 bag
[2018-02-15 07:47] VITALS: BP 126/68
[2018-02-15] MEDS ORDERED: POLYETHYLENE GLYCOL 3350 119 GM BTL PO SCH (09:00)
== END 2018-02-15 09:15 | disposition hospice, home (50) | DRG 435 ==
LOC: MS 06:39 → ER 06:39 → MS 09:50
PROVIDERS: ADMIT Family Medicine; ATTEND Family Medicine
DX: E88.09 Other disorders of plasma-protein metabolism, not elsewhere classified; E86.1 Hypovolemia; C79.31 Secondary malignant neoplasm of brain; E11.9 Type 2 diabetes mellitus without complications; J96.01 Acute respiratory failure with hypoxia; G47.00 Insomnia, unspecified; I10 Essential (primary) hypertension; C78.7 Secondary malignant neoplasm of liver and intrahepatic bile duct; I95.9 Hypotension, unspecified; R18.8 Other ascites; M79.671 Pain in right foot; Z51.5 Encounter for palliative care; Z87.891 Personal history of nicotine dependence; R53.1 Weakness; C24.0 Malignant neoplasm of extrahepatic bile duct
CPT/HCPCS: 36415; 36600; 70450; 71010; 71045; 80053; 80307; 80329; 81001; 82140; 82803; 83605; 85025; 85610; 85730; 87040; 87086; 93005; 94762; 96360; 96372; 99285; G0479; G0480; J2405